=== PATIENT | female | born 1990 | race American Indian/Alaskan Native ===

== ENCOUNTER 2019-06-11 05:15 | Inpatient (IN) | payer MEDICAID ==
--- NOTE | 2019-06-11 05:58 | XRay Report ---
CHEST 1 VIEW 5:46 AM INDICATION / CLINICAL INFORMATION: Chest pain and difficulty breathing for 2 days. . COMPARISON: None available. FINDINGS: SUPPORT DEVICES: None. HEART / MEDIASTINUM: The heart size is borderline. There is mild prominence of the central pulmonary vessels. LUNGS / PLEURA: Interstitial lung markings are mildly increased in both mid to lower lung zones. Ther e are trace bilateral pleural effusions. No pneumothorax. ADDITIONAL FINDINGS: No significant additional findings. IMPRESSION: Mild pulmonary edema. Signer Name: Aron Martin MD Signed: 06/11/2019 5:54 AM Workstation Name: [id number]
[2019-06-11] MEDS ORDERED: NORMODYNE PO ONE (06:35)
[2019-06-11] MEDS ORDERED: NORMODYNE IV ONE ×2 (07:31→10:07)
[2019-06-11 07:33] LABS: Bilirubin,Urine NEG (Negative); Blood,Urine SM (Negative); Color,Urine Yellow (Yellow); Mucus,Urine FEW /HPF; Urobilinogen,Urine < 2.0 mg/dL (<2.0)
--- NOTE | 2019-06-11 07:39 | Emergency Department Report ---
ED Chest Pain HPI - General Chief Complaint: Chest Pain Stated Complaint: CHEST PAIN Time Seen by Provider: 06/11/19 07:24 Source: patient Mode of arrival: Ambulatory Limitations: No Limitations - History of Present Illness Initial Comments: Charline is a very pleasant 28 yo female. She is a new mother who presents with chest pain and shortness of breath. She delivered her baby boy vaginally at [facility] on May 03. She did not have any complications during the . She was followed by [facility] in addition to her primary paper conservator Dr. Bundy. Did not have preeclampsia. She even underwent 24 hour urine collection prior to delivery. She was induced at 39 weeks and 5 days. Had been doing well until Thursday 3 days ago. She has had central heavy chest pain with shortness of breath. Seen at urgent care this week but delayed evaluation to ER. During the night, she awakened with shortness of breath and severe chest heaviness. No abdominal pain. No headache. No leg swelling. No visual changes. MD Complaint: chest pain -: Gradual, days(s) (3) Onset: during rest Pain Location: substernal Severity: moderate, severe Severity scale (0 -10): 8 Quality: heaviness Consistency: constant Improves With: other (sitting up) Worsens With: exertion re: dyspnea - Related Data Allergies Allergy/AdvReac Type Severity Reaction Status Date / Time No Known Allergies Allergy Unverified 06/11/19 05:29 Heart Score - HEART Score History: Slightly suspicious EKG: Non-specific Age: < 45 Risk factors: 1-2 risk factors Troponin: < normal limit HEART Score: 2 ED Review of Systems ROS: Stated complaint: CHEST PAIN Other details as noted in HPI Comment: All other systems reviewed and negative Constitutional: denies: fever, malaise Eyes: denies: vision change Respiratory: shortness of breath. denies: cough Cardiovascular: chest pain Gastrointestinal: denies: abdominal pain, nausea Neurological: denies: headache ED Past Medical Hx - Past Medical History Previous Medical History?: No - Surgical History Past Surgical History?: No - Social History Smoking Status: Never Smoker Substance Use Type: None ED Physical Exam - General Limitations: No Limitations General appearance: alert, in no apparent distress - Head Head exam: Present: atraumatic, normocephalic - Eye Eye exam: Present: normal appearance - ENT ENT exam: Present: mucous membranes moist - Neck Neck exam: Present: normal inspection, full ROM - Respiratory Respiratory exam: Present: normal lung sounds bilaterally. Absent: respiratory distress, wheezes, rales, rhonchi - Cardiovascular Cardiovascular Exam: Present: regular rate, normal rhythm, normal heart sounds. Absent: systolic murmur, diastolic murmur, rubs, gallop - GI/Abdominal GI/Abdominal exam: Present: soft, normal bowel sounds. Absent: distended, tenderness, guarding, rebound - Extremities Exam Extremities exam: Present: normal inspection - Back Exam Back exam: Present: normal inspection - Neurological Exam Neurological exam: Present: alert, oriented X3 - Psychiatric Psychiatric exam: Present: normal affect, normal mood - Skin Skin exam: Present: warm, dry, intact, normal color. Absent: rash ED Course Vital Signs 06/11/19 06/11/19 06/11/19 05:26 07:37 08:00 Temperature 98.8 F Pulse Rate 120 H 116 H Respiratory 18 18 Rate Blood Pressure 160/115 154/113 Blood Pressure [Left] O2 Sat by Pulse 98 98 Oximetry 06/11/19 06/11/19 06/11/19 08:35 09:39 10:03 Temperature 98.3 F Pulse Rate 92 H 69 86 Respiratory 18 14 18 Rate Blood Pressure Blood Pressure 148/100 104/53 144/104 [Left] O2 Sat by Pulse 98 98 99 Oximetry 06/11/19 06/11/19 10:13 11:28 Temperature Pulse Rate 92 H 90 Respiratory 18 Rate Blood Pressure 144/104 Blood Pressure 156/131 [Left] O2 Sat by Pulse 98 Oximetry ED Medical Decision Making - Lab Data Result diagrams: 06/11/19 07:23 06/11/19 07:22 - EKG Data 06/11/19 07:37 EKG obtained 0531 Sinus Tachycardia rate 120 bpm nl axis nl intervals no ST elevation inverted T wave in leads I avl - Radiology Data Radiology results: report reviewed Chest x-ray: Vascular congestion and pulmonary edema CT angiogram chest: No pulmonary embolism, positive pulmonary edema with minimal pericardial effusion, pleural effusion on the right, abdominal ascites - Medical Decision Making Junita presents 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 Pulmonary edema with pleural effusion and pericardial effusion on CT angio with abdominal ascities Blood pressure addressed initially with IV labetalol. I have added afterload reduction with hydralazine. Also did initiate diuresis with IV furosemide. I highly appreciate the gracious consultation of multi purpose machine operator Dr. Ortiz. Admitted to hospitalist service. Critical Care Time: Yes Critical care time in (mins) excluding proc time.: 40 Critical care attestation.: If time is entered above; I have spent that time in minutes in the direct care of this critically ill patient, excluding procedure time. 40 minutes of critical care time excluding procedures were used in the care of the patient. Mrs. Basilio require multiple reassessments and interventions. I spoke with consultants involved in her care. I reviewed electronic record. I updated her family member at the bedside. I provided extensive education to patient. ED Disposition Clinical Impression: Cardiomyopathy, peripartum, , Acute CHF, Acute respiratory failure with hypoxia Disposition: DC-09 OP ADMIT IP TO THIS HOSP Is pt being admited?: Yes Does the pt Need Aspirin: No Condition: Stable
[2019-06-11 08:01] LABS: Basophils # (Auto) 0.1 K/mm3 (0.0-0.1); Basophils % (Auto) 0.8 % (0.0-1.8); Eosinophils # (Auto) 0.4 K/mm3 (0.0-0.4); Eosinophils % (Auto) 4.2 % (0.0-4.3); Hematocrit 38.6 % (30.3-42.9); Lymphocytes # (Auto) 2.6 K/mm3 (1.2-5.4); Lymphocytes % (Auto) 28.5 % (13.4-35.0); Mean Corpuscular HGB Conc 34 % (30-34); Mean Corpuscular Volume 93 fl (79-97); Monocytes # (Auto) 0.4 K/mm3 (0.0-0.8); Monocytes % (Auto) 4.6 % (0.0-7.3); Platelet Count 271 K/mm3 (140-440); Red Blood Count 4.16 M/mm3 (3.65-5.03); Red Cell Distribution Width 13.2 % (13.2-15.2)
[2019-06-11 08:11] LABS: INR 1.1 (0.87-1.13); Partial Thromboplastin Time 30.9 Sec. (24.2-36.6)
[2019-06-11 09:12] LABS: Alanine Aminotransferase 14 units/L (7-56); Albumin 3.8 g/dL (3.9-5); BUN/Creatinine Ratio 17; Blood Urea Nitrogen 15 mg/dL (7-17); Calcium 9.1 mg/dL (8.4-10.2); Hemolysis Index 9
[2019-06-11 09:19] LABS: Bilirubin,Direct < 0.2 mg/dL (0-0.2)
--- NOTE | 2019-06-11 11:07 | Cat Scan Report ---
CT angio chest INDICATION: chest pain dyspnea . TECHNIQUE: All CT scans at this location are performed using CT dose reduction for ALARA by means of automated e xposure control. Precontrast localizer images were obtained, followed by axial and 3-dimensional reconstruction images , performed at an independent workstation by the nuclear medicine pet ct technologist after IV bolus contrast injection. COMPARISON: None available. FINDINGS: Small pericardial effusion and right pleural effusion. Minimal ascites in the upper abdomen around th e spleen. No mediastinal, hilar or axillary adenopathy. Diffuse interstitial pulmonary disease, probably pulmonary edema. No evidence of pulmonary embolus. IMPRESSION: 1. Interstitial pulmonary edema, small right pleural effusion and minimal pericardial effusion, as we ll as slight ascites in the upper abdomen. Etiology is not known in this 28-year-old patient. 2. Negative for pulmonary embolus. Signer Name: Tomer Hanks MD Signed: 06/11/2019 11:03 AM Workstation Name: [id number]
[2019-06-11] MEDS ORDERED: APRESOLINE PO ONE (11:39)
[2019-06-11] MEDS ORDERED: LASIX IV ONE (11:56)
--- NOTE | 2019-06-11 15:46 | Consultation ---
History of Present Illness Consult date: 06/11/19 Requesting physician: LANNY BA Consult reason: chest pain History of present illness: Ms. Basilio is a 28 y/o female who presented to [facility] with chest pain and SOB. She delivered a baby on May 03, but has no other medical history. She reports that on Thursday, she began to experience chest pain and shortness of breath. She was evaluated at an urgent care and found to also be hypertensive, but she did not go the the ER as advised. That night, she awoke with severe chest heaviness and SOB. Her D-dimer was positive, but CTA negative for PE. An EKG revealed ST with no signs of acute ischemia and an initial troponin was negative. A chest x-ray found cardiomegaly and changes suggestive of congestive heart failure; additionally, her BNP was elevated. A subsequent dose of Lasix provided some relief. Past History Past Medical History: other (Childbirth, 05/03/2019) Medications and Allergies Allergies Allergy/AdvReac Type Severity Reaction Status Date / Time No Known Allergies Allergy Unverified 06/11/19 05:29 Review of Systems All systems: negative Cardiovascular: chest pain, shortness of breath Physical Examination Vital Signs Temp Pulse Resp BP Pulse Ox 98.8 F 120 H 18 160/115 98 06/11/19 05:26 06/11/19 05:26 06/11/19 05:26 06/11/19 05:26 06/11/19 05:26 General appearance: no acute distress HEENT: Positive: PERRL Neck: Positive: neck supple Cardiac: Positive: Regular Rhythm Lungs: Positive: Decreased Breath Sounds (bibasilar) Neuro: Positive: Grossly Intact Abdomen: Positive: Unremarkable Female genitourinary: deferred Skin: Positive: Clear Musculoskeletal: Normal Range of Motion Extremities: Present: normal Results 06/11/19 07:23 06/11/19 07:22 Cardiac Enzymes 06/11/19 Range/Units 07:22 AST 16 (5-40) units/L Coagulation 06/11/19 Range/Units 07:22 PT 13.9 (12.2-14.9) Sec. INR 1.10 (0.87-1.13) APTT 30.9 (24.2-36.6) Sec. CBC 06/11/19 Range/Units 07:23 WBC 9.1 (4.5-11.0) K/mm3 RBC 4.16 (3.65-5.03) M/mm3 Hgb 13.0 (10.1-14.3) gm/dl Hct 38.6 (30.3-42.9) % Plt Count 271 (140-440) K/mm3 Lymph # 2.6 (1.2-5.4) K/mm3 [place] # 0.4 (0.0-0.8) K/mm3 Eos # 0.4 (0.0-0.4) K/mm3 Baso # 0.1 (0.0-0.1) K/mm3 Comprehensive Metabolic Panel 06/11/19 Range/Units 07:22 Sodium 146 H (137-145) mmol/L Potassium 3.8 (3.6-5.0) mmol/L Chloride 109.1 H (98-107) mmol/L Carbon Dioxide 24 (22-30) mmol/L BUN 15 (7-17) mg/dL Creatinine 0.9 (0.7-1.2) mg/dL Glucose 107 H (65-100) mg/dL Calcium 9.1 (8.4-10.2) mg/dL Direct Bilirubin < 0.2 (0-0.2) mg/dL Indirect Bilirubin 0.0 mg/dL AST 16 (5-40) units/L ALT 14 (7-56) units/L Alkaline Phosphatase 81 (35-129) units/L Total Protein 7.3 (6.3-8.2) g/dL Albumin 3.8 L (3.9-5) g/dL - Imaging and Cardiology Echo: pending EKG: report reviewed (ST with no evidence of acute ischemic changes) Assessment and Plan Ms. Basilio is a 28 y/o female who is five weeks post- and presented to [facility] with CP and SOB. She has no other known medical history. Echocardiogram is pending, but presentation suggestive of peripartum cardiomyopathy. Continue IV diuresis. Further recommendations pending hospital course. The patient was evaluated by Dr. Ortiz, who performed assessment and developed plan of care. - Patient Problems (1) Acute CHF Current Visit: Yes Status: Suspected (2) Acute respiratory failure with hypoxia Current Visit: Yes Status: Acute (3) Cardiomyopathy, peripartum, Current Visit: Yes Status: Suspected (4) Chest pain Current Visit: Yes Status: Acute
[2019-06-11] MEDS ORDERED: DILAUDID IV PRN (18:33)
[2019-06-11] MEDS ORDERED: ZOFRAN IV PRN (18:33)
[2019-06-11] MEDS ORDERED: SODIUM CHLORIDE FLUSH SYRINGE 10 ML IV PRN (18:33)
[2019-06-11] MEDS ORDERED: K-DUR PO SCH (19:00)
--- NOTE | 2019-06-11 19:54 | History and Physical Report ---
History of Present Illness Date of examination: 06/11/19 Date of admission: 06/11/19 13:56 Chief complaint: Chest pain and shortness of breath for 3 days History of present illness: 28 yo female presents with chest pain and shortness of breath . She delivered her baby boy vaginally at [facility] [place] on May 03. She did not have any complications during the . She was followed by [facility] in addition to her primary band tier Dr. Bundy. Did not have preeclampsia. She even underwent 24 hour urine collection prior to delivery. She was induced at 39 weeks and 5 days. Had been doing well until Thursday 3 days ago. She has had central heavy chest pain with shortness of breath. Seen at urgent care this week but delayed evaluation to ER. During the night, she awakened with shortness of breath and severe chest heaviness. No abdominal pain. No headache. No leg swelling. No visual changes. Past Medical History None Surgical History Past Surgical History?: No Social History Smoking Status: Never Smoker Substance Use Type: None Family history Htn Review of Systems ROS: Stated complaint: CHEST PAIN and SOB on exertion Other details as noted in HPI Comment: All other systems reviewed and negative Constitutional: denies: fever, malaise Eyes: denies: vision change Respiratory: shortness of breath. denies: cough Cardiovascular: chest pain Gastrointestinal: denies: abdominal pain, nausea Neurological: denies: headache 14 point review of systems reviewed and otherwise negative Past History Past Medical History: other (Childbirth, 05/03/2019) Medications and Allergies Allergies Allergy/AdvReac Type Severity Reaction Status Date / Time No Known Allergies Allergy Unverified 06/11/19 05:29 Active Meds: Active Medications Acetaminophen (Tylenol) 650 mg PO Q4H PRN PRN Reason: Pain MILD(1-3)/Fever >100.5/BUTLER Furosemide (Lasix) 40 mg IV 0600 RAKESH Hydromorphone HCl (Dilaudid) 0.5 mg IV Q3H PRN PRN Reason: Pain , Severe (7-10) Ondansetron HCl (Zofran) 4 mg IV Q8H PRN PRN Reason: Nausea And Vomiting Oxycodone/Acetaminophen (Percocet 5/325) 1 tab PO Q6H PRN PRN Reason: Pain, Moderate (4-6) Potassium Chloride (K-Dur) 20 meq PO Q12H RAKESH Sodium Chloride (Sodium Chloride Flush Syringe 10 Ml) 10 ml IV BID RAKESH Sodium Chloride (Sodium Chloride Flush Syringe 10 Ml) 10 ml IV PRN PRN PRN Reason: LINE FLUSH Exam - Constitutional Vitals: Temp Pulse Resp BP Pulse Ox 98.0 F 101 H 20 142/105 99 06/11/19 15:57 06/11/19 15:57 06/11/19 18:28 06/11/19 15:57 06/11/19 18:28 General appearance: Present: mild distress, well-nourished - EENT Eyes: Present: PERRL ENT: hearing intact, clear oral mucosa - Neck Neck: Present: supple, normal ROM - Respiratory Respiratory effort: normal Respiratory: bilateral: CTA - Cardiovascular Heart rate: 118 Rhythm: regular Heart Sounds: Present: S1 & S2. Absent: rub, click - Extremities Extremities: no ischemia, pulses intact, pulses symmetrical, No edema Peripheral Pulses: within normal limits - Abdominal General gastrointestinal: Present: soft, non-tender, non-distended, normal bowel sounds Female genitourinary: Present: normal - Rectal Rectal Exam: deferred - Integumentary Integumentary: Present: clear, warm, dry - Musculoskeletal Musculoskeletal: gait normal, strength equal bilaterally - Psychiatric Psychiatric: appropriate mood/affect, intact judgment & insight - Neurologic Neurologic: CNII-XII intact, moves all extremities - Allied Health Allied health notes reviewed: nursing, case management Results - Labs CBC & Chem 7: 06/11/19 07:23 06/11/19 07:22 Labs: Laboratory Last Values WBC 9.1 K/mm3 (4.5-11.0) 06/11/19 07:23 RBC 4.16 M/mm3 (3.65-5.03) 06/11/19 07:23 Hgb 13.0 gm/dl (10.1-14.3) 06/11/19 07:23 Hct 38.6 % (30.3-42.9) 06/11/19 07:23 MCV 93 fl (79-97) 06/11/19 07:23 MCH 31 pg (28-32) 06/11/19 07:23 MCHC 34 % (30-34) 06/11/19 07:23 RDW 13.2 % (13.2-15.2) 06/11/19 07:23 Plt Count 271 K/mm3 (140-440) 06/11/19 07:23 Lymph % (Auto) 28.5 % (13.4-35.0) 06/11/19 07:23 [place] % (Auto) 4.6 % (0.0-7.3) 06/11/19 07:23 Eos % (Auto) 4.2 % (0.0-4.3) 06/11/19 07:23 Baso % (Auto) 0.8 % (0.0-1.8) 06/11/19 07:23 Lymph # 2.6 K/mm3 (1.2-5.4) 06/11/19 07:23 [place] # 0.4 K/mm3 (0.0-0.8) 06/11/19 07:23 Eos # 0.4 K/mm3 (0.0-0.4) 06/11/19 07:23 Baso # 0.1 K/mm3 (0.0-0.1) 06/11/19 07:23 Seg Neutrophils % 61.9 % (40.0-70.0) 06/11/19 07:23 Seg Neutrophils # 5.7 K/mm3 (1.8-7.7) 06/11/19 07:23 PT 13.9 Sec. (12.2-14.9) 06/11/19 07:22 INR 1.10 (0.87-1.13) 06/11/19 07:22 APTT 30.9 Sec. (24.2-36.6) 06/11/19 07:22 764.54 ng/mlDDU (0-234) H 06/11/19 07:22 Sodium 146 mmol/L (137-145) H 06/11/19 07:22 Potassium 3.8 mmol/L (3.6-5.0) 06/11/19 07:22 Chloride 109.1 mmol/L (98-107) H 06/11/19 07:22 Carbon Dioxide 24 mmol/L (22-30) 06/11/19 07:22 17 mmol/L 06/11/19 07:22 BUN 15 mg/dL (7-17) 06/11/19 07:22 0.9 mg/dL (0.7-1.2) 06/11/19 07:22 Estimated GFR > 60 ml/min 06/11/19 07:22 17 % 06/11/19 07:22 Glucose 107 mg/dL (65-100) H 06/11/19 07:22 Calcium 9.1 mg/dL (8.4-10.2) 06/11/19 07:22 0.20 mg/dL (0.1-1.2) 06/11/19 07:22 < 0.2 mg/dL (0-0.2) 06/11/19 07:22 0.0 mg/dL 06/11/19 07:22 AST 16 units/L (5-40) 06/11/19 07:22 ALT 14 units/L (7-56) 06/11/19 07:22 81 units/L (35-129) 06/11/19 07:22 < 0.010 ng/mL (0.00-0.029) 06/11/19 16:37 NT-Pro-B Natriuret Pep 6498 pg/mL (0-450) H 06/11/19 07:23 7.3 g/dL (6.3-8.2) 06/11/19 07:22 3.8 g/dL (3.9-5) L 06/11/19 07:22 1.1 % 06/11/19 07:22 Yellow (Yellow) 06/11/19 07:18 Clear (Clear) 06/11/19 07:18 5.0 (5.0-7.0) 06/11/19 07:18 Ur Specific [place] 1.023 (1.003-1.030) 06/11/19 07:18 30 mg/dl mg/dL (Negative) 06/11/19 07:18 Neg mg/dL (Negative) 06/11/19 07:18 Neg mg/dL (Negative) 06/11/19 07:18 Sm (Negative) 06/11/19 07:18 Neg (Negative) 06/11/19 07:18 Neg (Negative) 06/11/19 07:18 < 2.0 mg/dL (<2.0) 06/11/19 07:18 Ur Leukocyte Esterase Tr (Negative) 06/11/19 07:18 3.0 /HPF (0.0-6.0) 06/11/19 07:18 3.0 /HPF (0.0-6.0) 06/11/19 07:18 U Epithel Cells (Auto) 6.0 /HPF (0-13.0) 06/11/19 07:18 Few /HPF 06/11/19 07:18 Short CBC 06/11/19 Range/Units 07:23 WBC 9.1 (4.5-11.0) K/mm3 Hgb 13.0 (10.1-14.3) gm/dl Hct 38.6 (30.3-42.9) % Plt Count 271 (140-440) K/mm3 BMP 06/11/19 07:22 Sodium 146 H Potassium 3.8 Chloride 109.1 H Carbon Dioxide 24 BUN 15 Creatinine 0.9 Glucose 107 H Calcium 9.1 Cardiac Enzymes 06/11/19 06/11/19 Range/Units 07:22 16:37 Troponin T < 0.010 < 0.010 (0.00-0.029) ng/mL Liver Function 06/11/19 Range/Units 07:22 Total Bilirubin 0.20 (0.1-1.2) mg/dL Direct Bilirubin < 0.2 (0-0.2) mg/dL AST 16 (5-40) units/L ALT 14 (7-56) units/L Alkaline Phosphatase 81 (35-129) units/L Albumin 3.8 L (3.9-5) g/dL Urine 06/11/19 Range/Units 07:18 Urine Color Yellow (Yellow) Urine pH 5.0 (5.0-7.0) Ur Specific [place] 1.023 (1.003-1.030) Urine Protein 30 mg/dl (Negative) mg/dL Urine Glucose (UA) Neg (Negative) mg/dL - Imaging and Cardiology EKG: report reviewed (sinus tachycardia ,heart rate of 119/m nonspecific T wave abnormalities) Chest x-ray: report reviewed (IMPRESSION: Mild pulmonary edema. ) Assessment and Plan Advance Directives: Yes (full code) VTE prophylaxis?: Chemical Plan of care discussed with patient/family: Yes - Patient Problems (1) Acute respiratory failure with hypoxia Current Visit: Yes Status: Acute Plan to address problem: Patient is hypoxic secondary to pulmonary vascular congestion Improved with oxygen and Lasix (2) Chest pain Current Visit: Yes Status: Acute Qualifiers: Chest pain type: unspecified Qualified Code(s): R07.9 - Chest pain, unspecified Plan to address problem: Chest pain workup Serial troponins Lexiscan on Thursday morning Echocardiogram for ejection fraction (3) Cardiomyopathy, peripartum, Current Visit: Yes Status: Acute Plan to address problem: Patient is 5 weeks Did not have any preeclampsia or eclampsia We'll get echocardiogram Lasix 40 mg IV every 24 and potassium 20 mEq every 24 (4) Acute exacerbation of congestive heart failure Current Visit: Yes Status: Acute Qualifiers: Heart failure type: combined systolic and diastolic Qualified Code(s): I50.43 - Acute on chronic combined systolic (congestive) and diastolic (congestive) heart failure Plan to address problem: Secondary to possible cardiomyopathy of peripartum Check echocardiogram For ejection fraction and valve function IV Lasix 40 mg every 24 Beta blockers and low-dose Angiotensin receptor blockers in low-dose (5) Hypernatremia Current Visit: Yes Status: Acute Plan to address problem: Mild Should correct with Lasix (6) DVT prophylaxis Current Visit: Yes Status: Acute Plan to address problem: Lovenox 40 mg subcutaneous daily and GI prophylaxis
[2019-06-11] MEDS: COZAAR PO SCH (20:58)
[2019-06-11] MEDS: COREG PO SCH (21:00)
[2019-06-11] MEDS: K-DUR PO SCH (21:00)
[2019-06-11] MEDS: LOVENOX SUB-Q SCH (21:09)
[2019-06-11] MEDS: SODIUM CHLORIDE FLUSH SYRINGE 10 ML IV SCH (21:11)
[2019-06-12] MEDS ORDERED: LASIX IV SCH (06:00)
[2019-06-12] MEDS: LASIX IV SCH (06:01)
[2019-06-12 07:44] LABS: Basophils % (Auto) 0.5 % (0.0-1.8); Eosinophils # (Auto) 0.3 K/mm3 (0.0-0.4); Hemoglobin 14.3 gm/dl (10.1-14.3); Lymphocytes # (Auto) 2.8 K/mm3 (1.2-5.4); Lymphocytes % (Auto) 33.1 % (13.4-35.0); Mean Corpuscular HGB Conc 34 % (30-34); Mean Corpuscular Volume 92 fl (79-97); Monocytes # (Auto) 0.4 K/mm3 (0.0-0.8); Monocytes % (Auto) 4.2 % (0.0-7.3); Platelet Count 305 K/mm3 (140-440); Red Blood Count 4.58 M/mm3 (3.65-5.03); Red Cell Distribution Width 13.2 % (13.2-15.2)
[2019-06-12 08:15] LABS: Alanine Aminotransferase 17 units/L (7-56); Albumin 4.1 g/dL (3.9-5); BUN/Creatinine Ratio 12; Blood Urea Nitrogen 11 mg/dL (7-17); Calcium 9.3 mg/dL (8.4-10.2); Hemolysis Index 5
[2019-06-12] MEDS: K-DUR PO SCH (09:09)
[2019-06-12] MEDS: COZAAR PO SCH (09:09)
[2019-06-12] MEDS: COREG PO SCH ×2 (09:09→22:14)
[2019-06-12] MEDS: SODIUM CHLORIDE FLUSH SYRINGE 10 ML IV SCH ×2 (09:10→22:18)
[2019-06-12] MEDS ORDERED: NORMODYNE IV PRN (11:47)
--- NOTE | 2019-06-12 13:44 | Progress Note ---
Assessment and Plan An echocardiogram revealed an EF of 25 to 30 percent. We will initiate GDMT for HFrEF, but will hold ACEi/ARB if patient is nursing. Continue diuresis. We will also optimize her antihypertensive regimen. The patient has been seen in conjunction with Dr. Ortiz, who agrees with assessment and plan. - Patient Problems (1) Acute HFrEF (heart failure with reduced ejection fraction) Current Visit: Yes Status: Acute (2) Acute respiratory failure with hypoxia Current Visit: Yes Status: Acute (3) Cardiomyopathy, peripartum, Current Visit: Yes Status: Acute (4) Chest pain Current Visit: Yes Status: Acute Qualifiers: Chest pain type: unspecified Qualified Code(s): R07.9 - Chest pain, unspecified (5) Hypertension Current Visit: Yes Status: Acute Subjective Date of service: 06/12/19 Interval history: The patient is lying in bed in NAD. No complaints. Echo revealed EF of 25 to 30 percent with grade 2 diastolic dysfunction, mild TR and a small pericardial effusion. Objective Last Vital Signs Temp 98.1 F 06/12/19 12:00 Pulse 95 H 06/12/19 12:00 Resp 19 06/12/19 12:00 BP 145/108 06/12/19 12:00 Pulse Ox 98 06/12/19 10:00 - Physical Examination General: No Apparent Distress HEENT: Positive: PERRL Neck: Positive: neck supple Cardiac: Positive: Reg Rate and Rhythm Lungs: Positive: Normal Exam Neuro: Positive: Grossly Intact Abdomen: Positive: Unremarkable Skin: Positive: Clear Musculoskeletal: Normal Range of Motion Extremities: Present: normal - Labs and Meds Cardiac Enzymes 06/12/19 Range/Units 06:49 AST 16 (5-40) units/L CBC 06/12/19 Range/Units 06:49 WBC 8.5 (4.5-11.0) K/mm3 RBC 4.58 (3.65-5.03) M/mm3 Hgb 14.3 (10.1-14.3) gm/dl Hct 42.0 (30.3-42.9) % Plt Count 305 (140-440) K/mm3 Lymph # 2.8 (1.2-5.4) K/mm3 [place] # 0.4 (0.0-0.8) K/mm3 Eos # 0.3 (0.0-0.4) K/mm3 Baso # 0.0 (0.0-0.1) K/mm3 Comprehensive Metabolic Panel 06/12/19 Range/Units 06:49 Sodium 145 (137-145) mmol/L Potassium 3.8 (3.6-5.0) mmol/L Chloride 103.6 (98-107) mmol/L Carbon Dioxide 27 (22-30) mmol/L BUN 11 (7-17) mg/dL Creatinine 0.9 (0.7-1.2) mg/dL Glucose 102 H (65-100) mg/dL Calcium 9.3 (8.4-10.2) mg/dL AST 16 (5-40) units/L ALT 17 (7-56) units/L Alkaline Phosphatase 93 (35-129) units/L Total Protein 7.7 (6.3-8.2) g/dL Albumin 4.1 (3.9-5) g/dL - Imaging and Cardiology EKG: report reviewed (sinus tachycardia ,heart rate of 119/m nonspecific T wave abnormalities) Echo: pending, report reviewed (06/12/19: EF 25-30%, mild TR, grade 2 diastolic dysfunction, small pericardial effusion )
[2019-06-12] MEDS: IMDUR PO SCH (14:18)
[2019-06-12] MEDS: APRESOLINE PO SCH ×2 (14:18→22:18)
--- NOTE | 2019-06-12 16:44 | Progress Note ---
Assessment and Plan Assessment and plan: Patient is 28 yo woman without a history of chronic medical problems who delived a baby boy on May 03 who presented with SOB * 2D echocardiogram revealed an EF of 25 to 30 percent. Acute systolic heart failure -no sol/arb due to , -treat with lasix Acute respiratory failure with hypoxia -wean off O2 Cardiomyopathy, peripartum, -see above Chest pain -Cardiology is following Hypertension Current Visit: Yes Status: Acute History Interval history: Patient was seen and examined. Follow-up on current diagnosis CHF. No overnight events reported to me. Patient denies any chest pain, shortness breath, nausea/vomiting or severe headaches. Imaging, nursing note, chart, labs and old chart reviewed. Discussed with patient. Hospitalist Physical - Physical exam Narrative exam: Gen: WDWN, NAD, Awake, Alert, Orientated HEENT: NCAT, EOMI, PERRL, OP Clear Neck: supple, no adenopathy, no thyromegaly, + JVD CVS/Heart: RRR, normal S1S2, pulses present bilaterally Chest/Lungs: crackles at bases, Symmetrical chest expansion, good air entry bilaterally GI/Abdomen: soft, NTND, good bowel sounds, no guarding or rebound /Bladder: no suprapubic tenderness, no CVA or paraspinal tenderness Extermity/Skin: pre-tibial ble pitting edema +1 MSK: FROM x 4 Neuro: CN 2-12 grossly intact, no new focal deficits Psych: calm - Constitutional Vitals: Temp Pulse Resp BP Pulse Ox 98.0 F 109 H 18 143/99 100 06/12/19 16:19 06/12/19 16:19 06/12/19 16:19 06/12/19 16:19 06/12/19 16:19 General appearance: Present: well-nourished. Absent: mild distress Results - Labs CBC & Chem 7: 06/12/19 06:49 06/12/19 06:49 Labs: Laboratory Last Values WBC 8.5 K/mm3 (4.5-11.0) 06/12/19 06:49 RBC 4.58 M/mm3 (3.65-5.03) 06/12/19 06:49 Hgb 14.3 gm/dl (10.1-14.3) 06/12/19 06:49 Hct 42.0 % (30.3-42.9) 06/12/19 06:49 MCV 92 fl (79-97) 06/12/19 06:49 MCH 31 pg (28-32) 06/12/19 06:49 MCHC 34 % (30-34) 06/12/19 06:49 RDW 13.2 % (13.2-15.2) 06/12/19 06:49 Plt Count 305 K/mm3 (140-440) 06/12/19 06:49 Lymph % (Auto) 33.1 % (13.4-35.0) 06/12/19 06:49 [place] % (Auto) 4.2 % (0.0-7.3) 06/12/19 06:49 Eos % (Auto) 4.0 % (0.0-4.3) 06/12/19 06:49 Baso % (Auto) 0.5 % (0.0-1.8) 06/12/19 06:49 Lymph # 2.8 K/mm3 (1.2-5.4) 06/12/19 06:49 [place] # 0.4 K/mm3 (0.0-0.8) 06/12/19 06:49 Eos # 0.3 K/mm3 (0.0-0.4) 06/12/19 06:49 Baso # 0.0 K/mm3 (0.0-0.1) 06/12/19 06:49 Seg Neutrophils % 58.2 % (40.0-70.0) 06/12/19 06:49 Seg Neutrophils # 5.0 K/mm3 (1.8-7.7) 06/12/19 06:49 PT 13.9 Sec. (12.2-14.9) 06/11/19 07:22 INR 1.10 (0.87-1.13) 06/11/19 07:22 APTT 30.9 Sec. (24.2-36.6) 06/11/19 07:22 764.54 ng/mlDDU (0-234) H 06/11/19 07:22 Sodium 145 mmol/L (137-145) 06/12/19 06:49 Potassium 3.8 mmol/L (3.6-5.0) 06/12/19 06:49 Chloride 103.6 mmol/L (98-107) 06/12/19 06:49 Carbon Dioxide 27 mmol/L (22-30) 06/12/19 06:49 18 mmol/L 06/12/19 06:49 BUN 11 mg/dL (7-17) 06/12/19 06:49 0.9 mg/dL (0.7-1.2) 06/12/19 06:49 Estimated GFR > 60 ml/min 06/12/19 06:49 12 % 06/12/19 06:49 Glucose 102 mg/dL (65-100) H 06/12/19 06:49 5.6 % (4-6) 06/11/19 20:20 Calcium 9.3 mg/dL (8.4-10.2) 06/12/19 06:49 0.50 mg/dL (0.1-1.2) 06/12/19 06:49 < 0.2 mg/dL (0-0.2) 06/11/19 07:22 0.0 mg/dL 06/11/19 07:22 AST 16 units/L (5-40) 06/12/19 06:49 ALT 17 units/L (7-56) 06/12/19 06:49 93 units/L (35-129) 06/12/19 06:49 < 0.010 ng/mL (0.00-0.029) 06/11/19 16:37 NT-Pro-B Natriuret Pep 6498 pg/mL (0-450) H 06/11/19 07:23 7.7 g/dL (6.3-8.2) 06/12/19 06:49 4.1 g/dL (3.9-5) 06/12/19 06:49 1.1 % 06/12/19 06:49 Yellow (Yellow) 06/11/19 07:18 Clear (Clear) 06/11/19 07:18 5.0 (5.0-7.0) 06/11/19 07:18 Ur Specific [place] 1.023 (1.003-1.030) 06/11/19 07:18 30 mg/dl mg/dL (Negative) 06/11/19 07:18 Neg mg/dL (Negative) 06/11/19 07:18 Neg mg/dL (Negative) 06/11/19 07:18 Sm (Negative) 06/11/19 07:18 Neg (Negative) 06/11/19 07:18 Neg (Negative) 06/11/19 07:18 < 2.0 mg/dL (<2.0) 06/11/19 07:18 Ur Leukocyte Esterase Tr (Negative) 06/11/19 07:18 3.0 /HPF (0.0-6.0) 06/11/19 07:18 3.0 /HPF (0.0-6.0) 06/11/19 07:18 U Epithel Cells (Auto) 6.0 /HPF (0-13.0) 06/11/19 07:18 Few /HPF 06/11/19 07:18 Active Medications - Current Medications Current Medications: Generic Name Dose Route Start Last Admin Trade Name Freq PRN Reason Stop Dose Admin Acetaminophen 650 mg 06/11/19 18:33 Tylenol PO Q4H PRN Pain MILD(1-3)/Fever >100.5/BUTLER Carvedilol 3.125 mg 06/12/19 22:00 Coreg PO BID RAKESH Enoxaparin Sodium 40 mg 06/11/19 22:00 06/11/19 21:09 Lovenox SUB-Q 40 mg QDAY@2200 RAKESH Administration Furosemide 40 mg 06/12/19 06:00 06/12/19 06:01 Lasix IV 40 mg 0600 RAKESH Administration Hydralazine HCl 25 mg 06/12/19 14:00 06/12/19 14:18 Apresoline PO 25 mg Q8HR RAKESH Administration Hydromorphone HCl 0.5 mg 06/11/19 18:33 Dilaudid IV Q3H PRN Pain , Severe (7-10) Isosorbide Mononitrate 30 mg 06/12/19 14:00 06/12/19 14:18 Imdur PO 30 mg QDAY RAKESH Administration Labetalol HCl 10 mg 06/12/19 11:47 Normodyne IV Q4H PRN Blood Pressure Losartan Potassium 50 mg 06/11/19 21:00 06/12/19 09:09 Cozaar PO 50 mg QDAY RAKESH Administration Ondansetron HCl 4 mg 06/11/19 18:33 Zofran IV Q8H PRN Nausea And Vomiting Oxycodone/Acetaminophen 1 tab 06/11/19 18:33 Percocet 5/325 PO Q6H PRN Pain, Moderate (4-6) Potassium Chloride 20 meq 06/11/19 21:00 06/12/19 09:09 K-Dur PO 20 meq Q24HR RAKESH Administration Sodium Chloride 10 ml 06/11/19 22:00 06/12/19 09:10 Sodium Chloride Flush Syringe 10 Ml IV 10 ml BID RAKESH Administration Sodium Chloride 10 ml 06/11/19 18:33 Sodium Chloride Flush Syringe 10 Ml IV PRN PRN LINE FLUSH
[2019-06-12] MEDS: LOVENOX SUB-Q SCH (22:14)
[2019-06-12] MEDS: TYLENOL PO PRN (23:37)
[2019-06-13] MEDS: APRESOLINE PO SCH ×3 (05:53→22:39)
[2019-06-13] MEDS: LASIX IV SCH (05:53)
[2019-06-13] MEDS: COZAAR PO SCH (10:03)
[2019-06-13] MEDS: IMDUR PO SCH (10:03)
[2019-06-13] MEDS: K-DUR PO SCH (10:03)
[2019-06-13] MEDS: COREG PO SCH ×3 (10:03→22:40)
[2019-06-13] MEDS: SODIUM CHLORIDE FLUSH SYRINGE 10 ML IV SCH ×2 (10:05→22:40)
--- NOTE | 2019-06-13 11:40 | Progress Note ---
Assessment and Plan (1) Acute HFrEF (heart failure with reduced ejection fraction) Current Visit: Yes Status: Acute (2) Acute respiratory failure with hypoxia Current Visit: Yes Status: Acute (3) Cardiomyopathy, peripartum, Current Visit: Yes Status: Acute (4) Chest pain Current Visit: Yes Status: Acute Qualifiers: Chest pain type: unspecified Qualified Code(s): R07.9 - Chest pain, unspecified (5) Hypertension Current Visit: Yes Status: Acute Increase carvedilol to 12.5 mg twice a day from 3.125. To avoid Lorenzo inhibitors and ARBs because of nursing. Subjective Date of service: 06/13/19 Interval history: Patient is feeling better. She is nursing the baby. Blood pressure is still elevated. Patient wants to go home. Objective Vital Signs Temp Pulse Pulse Pulse Pulse Resp BP 06/13/19 11:21 97.7 F 101 H 16 135/97 06/13/19 10:03 94 H 147/111 06/13/19 08:15 98.3 F 104 H 18 146/103 06/13/19 05:53 96 H 141/100 06/13/19 04:25 98.7 F 96 H 20 141/100 06/13/19 04:00 98 H 06/12/19 22:18 98 H 149/109 06/12/19 22:14 98 H 149/109 06/12/19 21:14 105 H 105 H 105 H 18 06/12/19 20:00 98 H 06/12/19 19:19 98.3 F 105 H 18 151/109 06/12/19 16:19 98.0 F 109 H 18 06/12/19 16:04 112 H 143/99 06/12/19 14:18 90 140/108 06/12/19 14:16 89 140/108 06/12/19 12:00 98.1 F 103 H 19 BP Pulse Ox 06/13/19 11:21 95 06/13/19 10:03 06/13/19 08:15 96 06/13/19 05:53 06/13/19 04:25 92 06/13/19 04:00 06/12/19 22:18 06/12/19 22:14 06/12/19 21:14 98 06/12/19 20:00 06/12/19 19:19 96 06/12/19 16:19 143/99 100 06/12/19 16:04 96 06/12/19 14:18 06/12/19 14:16 98 06/12/19 12:00 145/108 - Physical Examination General: No Apparent Distress HEENT: Positive: PERRL Neck: Positive: neck supple Cardiac: Positive: S3 Neuro: Positive: Grossly Intact Abdomen: Positive: Unremarkable Skin: Positive: Clear Musculoskeletal: Normal Range of Motion Extremities: Present: normal - Imaging and Cardiology EKG: report reviewed (sinus tachycardia ,heart rate of 119/m nonspecific T wave abnormalities) Echo: pending, report reviewed (06/12/19: EF 25-30%, mild TR, grade 2 diastolic dysfunction, small pericardial effusion )
[2019-06-13] MEDS: PERCOCET 5/325 PO PRN (12:07)
--- NOTE | 2019-06-13 15:05 | Progress Note ---
Assessment and Plan Assessment and plan: Patient is 28 yo woman without a history of chronic medical problems who delived a baby boy on May 03 who presented with SOB * 2D echocardiogram revealed an estimated EF of 25 to 30 percent. Acute systolic heart failure -no sol/arb due to , -treat with lasix -increase Coreg -stress test canceled by Executive Vice President And Chief Operating Officer Acute respiratory failure with hypoxia -wean off O2 Cardiomyopathy, peripartum, -see above Chest pain -Cardiology is following Hypertension Current Visit: Yes Status: Acute Disposition: continue inpatient care for CHF, d/c once cleared by Executive Vice President And Chief Operating Officer. History Interval history: Patient was seen and examined. Follow-up on current diagnosis CHF. No overnight events reported to me. Patient denies any chest pain, shortness breath, nausea/vomiting or severe headaches. Imaging, nursing note, chart, labs and old chart reviewed. Discussed with patient. Hospitalist Physical - Physical exam Narrative exam: Gen: WDWN, NAD, Awake, Alert, Orientated HEENT: NCAT, EOMI, PERRL, OP Clear Neck: supple, no adenopathy, no thyromegaly, + JVD CVS/Heart: RRR, normal S1S2, pulses present bilaterally Chest/Lungs: crackles at bases, Symmetrical chest expansion, good air entry bilaterally GI/Abdomen: soft, NTND, good bowel sounds, no guarding or rebound /Bladder: no suprapubic tenderness, no CVA or paraspinal tenderness Extermity/Skin: pre-tibial ble pitting edema +1 MSK: FROM x 4 Neuro: CN 2-12 grossly intact, no new focal deficits Psych: calm - Constitutional Vitals: Temp Pulse Resp BP Pulse Ox 97.7 F 77 16 130/95 95 06/13/19 11:21 06/13/19 15:01 06/13/19 11:21 06/13/19 15:01 06/13/19 11:21 General appearance: Present: well-nourished. Absent: mild distress Results - Labs CBC & Chem 7: 06/12/19 06:49 06/12/19 06:49 Labs: Laboratory Last Values WBC 8.5 K/mm3 (4.5-11.0) 06/12/19 06:49 RBC 4.58 M/mm3 (3.65-5.03) 06/12/19 06:49 Hgb 14.3 gm/dl (10.1-14.3) 06/12/19 06:49 Hct 42.0 % (30.3-42.9) 06/12/19 06:49 MCV 92 fl (79-97) 06/12/19 06:49 MCH 31 pg (28-32) 06/12/19 06:49 MCHC 34 % (30-34) 06/12/19 06:49 RDW 13.2 % (13.2-15.2) 06/12/19 06:49 Plt Count 305 K/mm3 (140-440) 06/12/19 06:49 Lymph % (Auto) 33.1 % (13.4-35.0) 06/12/19 06:49 [place] % (Auto) 4.2 % (0.0-7.3) 06/12/19 06:49 Eos % (Auto) 4.0 % (0.0-4.3) 06/12/19 06:49 Baso % (Auto) 0.5 % (0.0-1.8) 06/12/19 06:49 Lymph # 2.8 K/mm3 (1.2-5.4) 06/12/19 06:49 [place] # 0.4 K/mm3 (0.0-0.8) 06/12/19 06:49 Eos # 0.3 K/mm3 (0.0-0.4) 06/12/19 06:49 Baso # 0.0 K/mm3 (0.0-0.1) 06/12/19 06:49 Seg Neutrophils % 58.2 % (40.0-70.0) 06/12/19 06:49 Seg Neutrophils # 5.0 K/mm3 (1.8-7.7) 06/12/19 06:49 PT 13.9 Sec. (12.2-14.9) 06/11/19 07:22 INR 1.10 (0.87-1.13) 06/11/19 07:22 APTT 30.9 Sec. (24.2-36.6) 06/11/19 07:22 764.54 ng/mlDDU (0-234) H 06/11/19 07:22 Sodium 145 mmol/L (137-145) 06/12/19 06:49 Potassium 3.8 mmol/L (3.6-5.0) 06/12/19 06:49 Chloride 103.6 mmol/L (98-107) 06/12/19 06:49 Carbon Dioxide 27 mmol/L (22-30) 06/12/19 06:49 18 mmol/L 06/12/19 06:49 BUN 11 mg/dL (7-17) 06/12/19 06:49 0.9 mg/dL (0.7-1.2) 06/12/19 06:49 Estimated GFR > 60 ml/min 06/12/19 06:49 12 % 06/12/19 06:49 Glucose 102 mg/dL (65-100) H 06/12/19 06:49 5.6 % (4-6) 06/11/19 20:20 Calcium 9.3 mg/dL (8.4-10.2) 06/12/19 06:49 0.50 mg/dL (0.1-1.2) 06/12/19 06:49 < 0.2 mg/dL (0-0.2) 06/11/19 07:22 0.0 mg/dL 06/11/19 07:22 AST 16 units/L (5-40) 06/12/19 06:49 ALT 17 units/L (7-56) 06/12/19 06:49 93 units/L (35-129) 06/12/19 06:49 < 0.010 ng/mL (0.00-0.029) 06/11/19 16:37 NT-Pro-B Natriuret Pep 6498 pg/mL (0-450) H 06/11/19 07:23 7.7 g/dL (6.3-8.2) 06/12/19 06:49 4.1 g/dL (3.9-5) 06/12/19 06:49 1.1 % 06/12/19 06:49 Yellow (Yellow) 06/11/19 07:18 Clear (Clear) 06/11/19 07:18 5.0 (5.0-7.0) 06/11/19 07:18 Ur Specific [place] 1.023 (1.003-1.030) 06/11/19 07:18 30 mg/dl mg/dL (Negative) 06/11/19 07:18 Neg mg/dL (Negative) 06/11/19 07:18 Neg mg/dL (Negative) 06/11/19 07:18 Sm (Negative) 06/11/19 07:18 Neg (Negative) 06/11/19 07:18 Neg (Negative) 06/11/19 07:18 < 2.0 mg/dL (<2.0) 06/11/19 07:18 Ur Leukocyte Esterase Tr (Negative) 06/11/19 07:18 3.0 /HPF (0.0-6.0) 06/11/19 07:18 3.0 /HPF (0.0-6.0) 06/11/19 07:18 U Epithel Cells (Auto) 6.0 /HPF (0-13.0) 06/11/19 07:18 Few /HPF 06/11/19 07:18 Active Medications - Current Medications Current Medications: Generic Name Dose Route Start Last Admin Trade Name Freq PRN Reason Stop Dose Admin Acetaminophen 650 mg 06/11/19 18:33 06/12/19 23:37 Tylenol PO 650 mg Q4H PRN Administration Pain MILD(1-3)/Fever >100.5/BUTLER Carvedilol 12.5 mg 06/13/19 12:00 06/13/19 12:08 Coreg PO 12.5 mg BID RAKESH Administration Enoxaparin Sodium 40 mg 06/11/19 22:00 06/12/19 22:14 Lovenox SUB-Q 40 mg QDAY@2200 RAKESH Administration Furosemide 40 mg 06/12/19 06:00 06/13/19 05:53 Lasix IV 40 mg 0600 RAKESH Administration Hydralazine HCl 25 mg 06/12/19 14:00 06/13/19 15:01 Apresoline PO 25 mg Q8HR RAKESH Administration Hydromorphone HCl 0.5 mg 06/11/19 18:33 Dilaudid IV Q3H PRN Pain , Severe (7-10) Isosorbide Mononitrate 30 mg 06/12/19 14:00 06/13/19 10:03 Imdur PO 30 mg QDAY RAKESH Administration Labetalol HCl 10 mg 06/12/19 11:47 Normodyne IV Q4H PRN Blood Pressure Ondansetron HCl 4 mg 06/11/19 18:33 Zofran IV Q8H PRN Nausea And Vomiting Oxycodone/Acetaminophen 1 tab 06/11/19 18:33 06/13/19 12:07 Percocet 5/325 PO 1 tab Q6H PRN Administration Pain, Moderate (4-6) Potassium Chloride 20 meq 06/11/19 21:00 06/13/19 10:03 K-Dur PO 20 meq Q24HR RAKESH Administration Sodium Chloride 10 ml 06/11/19 22:00 06/13/19 10:05 Sodium Chloride Flush Syringe 10 Ml IV 10 ml BID RAKESH Administration Sodium Chloride 10 ml 06/11/19 18:33 Sodium Chloride Flush Syringe 10 Ml IV PRN PRN LINE FLUSH
[2019-06-13] MEDS: TYLENOL PO PRN (17:16)
[2019-06-13] MEDS: LOVENOX SUB-Q SCH (22:40)
[2019-06-14] MEDS: PERCOCET 5/325 PO PRN (01:05)
[2019-06-14] MEDS: APRESOLINE PO SCH (06:34)
[2019-06-14] MEDS: LASIX IV SCH (06:34)
[2019-06-14] MEDS: K-DUR PO SCH (09:23)
[2019-06-14] MEDS: IMDUR PO SCH (09:23)
[2019-06-14] MEDS: TYLENOL PO PRN (09:34)
[2019-06-14] MEDS: COREG PO SCH (09:34)
[2019-06-14 09:35] VITALS: BP 130/93
[2019-06-14] MEDS: SODIUM CHLORIDE FLUSH SYRINGE 10 ML IV SCH (10:22)
--- NOTE | 2019-06-14 10:30 | Discharge Summary ---
Providers - Providers Date of Admission: 06/11/19 13:56 Attending physician: MEGAN VELASQUEZ MD 06/11/19 18:33 Consult to Physician [CONS] Routine Comment: Consulting Provider: JADE HINTON Physician Instructions: Reason For Exam: CHF Primary care physician: [facility], Hospitalization Reason for admission: cardiomyopathy Condition: Stable Hospital course: Patient is 28 yo woman without a history of chronic medical problems who delived a baby boy on May 03 who presented with SOB * 2D echocardiogram revealed an estimated EF of 25 to 30 percent. * Per discussion with cardiology, no isosorbid or hydralazin and no lasix of k. Patient will be seen in the office and re-evaluated * Increase carvedilol to 12.5 mg twice a day from 3.125. To avoid Lorenzo inhibitors and ARBs because of nursing. Acute systolic heart failure Acute respiratory failure with hypoxia Cardiomyopathy, peripartum, Chest pain atypical secondary Hypertension Disposition: TO HOME OR SELFCARE Time spent for discharge: 35 mins Core Measure Documentation - Palliative Care Palliative Care/ Comfort Measures: Not Applicable - Core Measures Any of the following diagnoses?: heart failure - Heart Failure Discharge Requirements LORENZO/ARB for LVSD if EF <40%: No Reason for no LORENZO/ARB: Medical contraindication Beta andressa at discharge: Yes Exam - Physical Exam Narrative exam: Gen: WDWN, NAD, Awake, Alert, Orientated HEENT: NCAT, EOMI, PERRL, OP Clear Neck: supple, no adenopathy, no thyromegaly, + JVD CVS/Heart: RRR, normal S1S2, pulses present bilaterally Chest/Lungs: crackles at bases, Symmetrical chest expansion, good air entry bilaterally GI/Abdomen: soft, NTND, good bowel sounds, no guarding or rebound /Bladder: no suprapubic tenderness, no CVA or paraspinal tenderness Extermity/Skin: pre-tibial ble pitting edema +1 MSK: FROM x 4 Neuro: CN 2-12 grossly intact, no new focal deficits Psych: calm - Constitutional Vitals: Temp Pulse Resp BP Pulse Ox 98.2 F 92 H 18 130/93 97 06/14/19 08:51 06/14/19 09:34 06/14/19 08:51 06/14/19 09:34 06/14/19 08:51 Plan Activity: advance as tolerated, fall precautions Diet: low fat Special Instructions: record daily BP diary Additional Instructions: ALSO FOLLOW WITH COMMUNICATIONS LEAD Follow up with: JADE HINTON MD [Staff Physician] - 7 Days (Follow up in our [place] office with Dr. Hinton on 06/15/2019 @ 1:30PM.) [place] [facility] [Primary Care Provider] - 3-5 Days Prescriptions: Carvedilol [Coreg] 12.5 mg PO BID #60 tablet
--- NOTE | 2019-06-14 12:30 | Progress Note ---
Assessment and Plan Currently stable cardiac status. BPs improved today. Cont coreg 12.5mg BID. Avoid Lorenzo inhibitors and ARBs because of nursing. Pt may discharge home from cardiology standpoint. Follow up in our [place] office with Dr. Ortiz on 06/15/2019 @ 1:30PM. The patient has been seen in conjunction with Dr. Cadet who agrees with the assessment and plan of care. - Patient Problems (1) Acute HFrEF (heart failure with reduced ejection fraction) Current Visit: Yes Status: Acute (2) Cardiomyopathy, peripartum, Current Visit: Yes Status: Acute (3) Acute respiratory failure with hypoxia Current Visit: Yes Status: Resolved (4) Chest pain Current Visit: Yes Status: Resolved Qualifiers: Chest pain type: unspecified Qualified Code(s): R07.9 - Chest pain, unspecified (5) Hypertension Current Visit: Yes Status: Chronic Subjective Date of service: 06/14/19 Principal diagnosis: HF Interval history: pt resting in bed, states she is feeling well. in SR on tele. Objective Last Vital Signs Temp 98.2 F 06/14/19 08:51 Pulse 89 06/14/19 12:11 Resp 18 06/14/19 10:00 BP 130/93 06/14/19 09:34 Pulse Ox 98 06/14/19 10:00 - Physical Examination General: No Apparent Distress HEENT: Positive: PERRL Neck: Positive: neck supple Cardiac: Positive: Reg Rate and Rhythm, S1/S2 Lungs: Positive: clear to auscultation Neuro: Positive: Grossly Intact Abdomen: Positive: Unremarkable Skin: Positive: Clear Musculoskeletal: Normal Range of Motion Extremities: Present: normal - Imaging and Cardiology EKG: report reviewed (sinus tachycardia ,heart rate of 119/m nonspecific T wave abnormalities) Echo: pending, report reviewed (06/12/19: EF 25-30%, mild TR, grade 2 diastolic dysfunction, small pericardial effusion )
== END 2019-06-14 12:55 | disposition home or self-care (01) | DRG 776 ==
LOC: ED 05:15 → 4A 13:56
PROVIDERS: ADMIT Internal Medicine; ATTEND Internal Medicine
DX: O99.53 Diseases of the respiratory system complicating the puerperium (principal); I11.0 Hypertensive heart disease with heart failure; J96.01 Acute respiratory failure with hypoxia; E87.0 Hyperosmolality and hypernatremia; Z82.49 Family history of ischemic heart disease and other diseases of the circulatory system; I50.43 Acute on chronic combined systolic (congestive) and diastolic (congestive) heart failure; O99.43 Diseases of the circulatory system complicating the puerperium; O10.13 Pre-existing hypertensive heart disease complicating the puerperium
CPT/HCPCS: 36415; 71045; 71275; 80053; 80076; 81001; 83036; 83880; 84484; 85025; 85379; 85610; 85730; 93005; 93010; 93306; G0378; J1650; J1940; Q9967

== ENCOUNTER 2019-06-27 21:16 | Emergency (ER) | payer SELFPAY ==
[2019-06-27 21:45] VITALS: BP 138/104
--- NOTE | 2019-06-27 21:47 | Event Note ---
ED Screening Note Date of service: 06/27/19 Time: 21:45 ED Screening Note: 28 yo presents 7 weeks post presents with chest pain and sob that worsened yesterday after vomitting episode This initial assessment/diagnostic orders/clinical plan/treatment(s) is/are subject to change based on patients health status, clinical progression and re- assessment by fellow clinical providers in the ED. Further treatment and workup at subsequent clinical providers discretion. Patient/guardian urged not to elope from the ED as their condition may be serious if not clinically assessed and managed. Initial orders include: ua, upt, cbc,cmp, d-dimer, pro bnp
[2019-06-27] MEDS ORDERED: KIONEX ONE (22:26)
== END 2019-06-28 01:20 | disposition left against medical advice (07) ==
LOC: ED 21:16
DX: R07.89 Other chest pain (principal); Z53.21 Procedure and treatment not carried out due to patient leaving prior to being seen by health care provider
CPT/HCPCS: 93005; 93010; J0153

== ENCOUNTER 2019-12-24 11:35 | Inpatient (IN) | payer SELFPAY ==
[2019-12-24] MEDS ORDERED: SODIUM CHLORIDE 0.9% 500 ML 500 ML IV ONE (12:01)
[2019-12-24] MEDS ORDERED: ONDANSETRON 4 MG/2 ML INJ IV ONE (12:01)
[2019-12-24] MEDS ORDERED: PANTOPRAZOLE 40 MG INJ IV ONE (12:01)
[2019-12-24] MEDS ORDERED: MORPHINE 4 MG/1 ML INJ IV ONE (12:02)
--- NOTE | 2019-12-24 12:09 | Emergency Department Report ---
<BADEMAR - Last Filed: 12/24/19 17:28> ED Abdominal Pain HPI - General Chief Complaint: Chest Pain Stated Complaint: CHEST PAIN Time Seen by Provider: 12/24/19 11:50 - Related Data Previous Rx's Medication Instructions Recorded Last Taken Type carvediloL [Coreg] 12.5 mg PO BID #60 tablet 06/14/19 Unknown Rx Allergies Allergy/AdvReac Type Severity Reaction Status Date / Time No Known Allergies Allergy Verified 12/24/19 11:47 ED Past Medical Hx - Medications Home Medications: Home Medications Medication Instructions Recorded Confirmed Last Taken Type carvediloL [Coreg] 12.5 mg PO BID #60 tablet 06/14/19 12/24/19 Unknown Rx ED Course - Reevaluation(s) Reevaluation #1: 12/24/19 17:27 Patient was signed out to me for evaluation of the patient CT. Patient's CT shows that there is some thickening of the wall of the gallbladder however pericholecystic fluid is unable to be appreciated on the CT. Patient still has some tenderness in the epigastric region and ultrasound will be performed. Aft er ultrasound and determination whether the patient should undergo admission or be discharged home with follow-up with surgery will be made. ED Medical Decision Making - Lab Data Result diagrams: 12/24/19 12:53 12/24/19 13:15 Lab Results 12/24/19 12/24/19 12/24/19 Range/Units 12:53 12:53 13:15 WBC 7.5 (4.5-11.0) K/mm3 RBC 4.30 (3.65-5.03) M/mm3 Hgb 13.5 (10.1-14.3) gm/dl Hct 39.0 (30.3-42.9) % MCV 91 (79-97) fl MCH 32 (28-32) pg MCHC 35 H (30-34) % RDW 14.1 (13.2-15.2) % Plt Count 279 (140-440) K/mm3 Lymph % (Auto) 21.5 (13.4-35.0) % [place] % (Auto) 3.6 (0.0-7.3) % Eos % (Auto) 1.1 (0.0-4.3) % Baso % (Auto) 0.5 (0.0-1.8) % Lymph # 1.6 (1.2-5.4) K/mm3 [place] # 0.3 (0.0-0.8) K/mm3 Eos # 0.1 (0.0-0.4) K/mm3 Baso # 0.0 (0.0-0.1) K/mm3 Seg Neutrophils % 73.3 H (40.0-70.0) % Seg Neutrophils # 5.5 (1.8-7.7) K/mm3 Sodium 141 (137-145) mmol/L Potassium 3.2 L (3.6-5.0) mmol/L Chloride 102.5 (98-107) mmol/L Carbon Dioxide 24 (22-30) mmol/L Anion Gap 18 mmol/L BUN 13 (7-17) mg/dL Creatinine 0.6 L (0.7-1.2) mg/dL Estimated GFR > 60 ml/min BUN/Creatinine Ratio 22 % Glucose 113 H (65-100) mg/dL Calcium 9.0 (8.4-10.2) mg/dL Total Bilirubin 2.50 H (0.1-1.2) mg/dL Direct Bilirubin 1.8 H (0-0.2) mg/dL Indirect Bilirubin 0.7 mg/dL AST 213 H (5-40) units/L ALT 154 H (7-56) units/L Alkaline Phosphatase 89 (35-129) units/L Troponin T < 0.010 (0.00-0.029) ng/mL NT-Pro-B Natriuret Pep 857.8 H (0-450) pg/mL Total Protein 7.7 (6.3-8.2) g/dL Albumin 4.1 (3.9-5) g/dL Albumin/Globulin Ratio 1.1 % Lipase 22 (13-60) units/L HCG, Qual (Negative) 12/24/19 Range/Units 13:15 WBC (4.5-11.0) K/mm3 RBC (3.65-5.03) M/mm3 Hgb (10.1-14.3) gm/dl Hct (30.3-42.9) % MCV (79-97) fl MCH (28-32) pg MCHC (30-34) % RDW (13.2-15.2) % Plt Count (140-440) K/mm3 Lymph % (Auto) (13.4-35.0) % [place] % (Auto) (0.0-7.3) % Eos % (Auto) (0.0-4.3) % Baso % (Auto) (0.0-1.8) % Lymph # (1.2-5.4) K/mm3 [place] # (0.0-0.8) K/mm3 Eos # (0.0-0.4) K/mm3 Baso # (0.0-0.1) K/mm3 Seg Neutrophils % (40.0-70.0) % Seg Neutrophils # (1.8-7.7) K/mm3 Sodium (137-145) mmol/L Potassium (3.6-5.0) mmol/L Chloride (98-107) mmol/L Carbon Dioxide (22-30) mmol/L Anion Gap mmol/L BUN (7-17) mg/dL Creatinine (0.7-1.2) mg/dL Estimated GFR ml/min BUN/Creatinine Ratio % Glucose (65-100) mg/dL Calcium (8.4-10.2) mg/dL Total Bilirubin (0.1-1.2) mg/dL Direct Bilirubin (0-0.2) mg/dL Indirect Bilirubin mg/dL AST (5-40) units/L ALT (7-56) units/L Alkaline Phosphatase (35-129) units/L Troponin T (0.00-0.029) ng/mL NT-Pro-B Natriuret Pep (0-450) pg/mL Total Protein (6.3-8.2) g/dL Albumin (3.9-5) g/dL Albumin/Globulin Ratio % Lipase (13-60) units/L HCG, Qual Negative (Negative) - Radiology Data CT ABDOMEN AND PELVIS WITH IV CONTRAST INDICATION: Generalized abdominal pain for 2 days TECHNIQUE: Following the administration of intravenous contrast, multiple axial CT images of the abdomen and pelvis were acquired. Sagittal and coronal reformats were obtained. All CT performed at this facility utilize dose reduction techniques including automated exposure control, iterative reconstruction and weight based dosing when appropriate to reduce patient radiation dose to as low as reasonably achievable. COMPARISON: None FINDINGS: Limited imaging of the bilateral lung bases trace acute abnormality. Abdomen: There is possible subtle wall thickening of the gallbladder. The liver, spleen, pancreas, bilateral adrenal glands and bilateral kidneys show no evidence of acute abnormality. There is no evidence of free fluid, free air or bowel obstruction. The appendix is visualized and appears normal. Pelvis: The urinary bladder, uterus and bilateral adnexal region show no evidence of acute abnormality. No free pelvic fluid is identified. Bones and Soft Tissues: Evaluation of bony structures demonstrates no evidence of acute bony abnormality. IMPRESSION: 1. Possible subtle thickening of the gallbladder wall that could suggest cholecystitis. Please correlate with patient's clinical circumstances. Signer Name: May Jones MD Signed: 12/24/2019 3:30 PM Workstation Name: [id number] ED Disposition Clinical Impression: Acute cholecystitis, Hyperbilirubinemia, Transaminitis Disposition: DC-[id number] OP ADMIT IP TO THIS HOSP Condition: Stable <YOHANA CATALAN - Last Filed: 12/24/19 21:33> ED Course - Reevaluation(s) Reevaluation #2: 12/24/19 20:38 ultrasound suggest cholecystitis general surgery paged, antibiotics ordered after discussion with gen surgery will discuss with gi, if recommended patient will require admission for new onset hyperbilirubinemia, suspected c holecystitis, and transaminitis. Reevaluation #3: 12/24/19 21:34 Dr George of general surgery, and Dr Abraham of GI they will follow in consultation Dr Tracie Negrete to admit patient Discussed significance of laboratory findings and radiology findings with patient, and she is amenable to hospitalization and admission at this time. Her pain is improved at this time, and she appears fairly comfortable ED Medical Decision Making - Lab Data Result diagrams: 12/24/19 12:53 12/24/19 13:15 <CARMEN MARTIN - Last Filed: 12/25/19 17:06> ED Abdominal Pain HPI - General Source: patient, EMS Mode of arrival: Stretcher Limitations: No Limitations - History of Present Illness Initial Comments: Patient is 29 years old female with history of cardiomyopathy after with an ejection fraction of 25 to 35% 7 months ago. Patient presented to the ER complaining of epigastric pain that radiated to her back since last night. Patient stated that she has been having some nausea and vomiting also no diarrhea. Patient denied any chest pain or shortness of breath. Patient also denied any fever or chills. MD Complaint: abdominal pain -: Last night Location: epigastric Radiation: back Migration to: no migration Severity: severe Severity scale (0 -10): 8 Quality: sharp Consistency: constant Associated Symptoms: denies other symptoms ED Review of Systems ROS: Stated complaint: CHEST PAIN Other details as noted in HPI Comment: All other systems reviewed and negative Constitutional: denies: chills, fever Respiratory: denies: cough, shortness of breath, SOB with exertion Cardiovascular: denies: chest pain, palpitations Gastrointestinal: abdominal pain, nausea, vomiting. denies: diarrhea, constipation, hematemesis, melena Musculoskeletal: denies: back pain Neurological: denies: headache, weakness, numbness, paresthesias, confusion ED Past Medical Hx - Past Medical History Previous Medical History?: Yes Additional medical history: cardiomyopathy - Surgical History Past Surgical History?: No - Social History Smoking Status: Never Smoker Substance Use Type: None ED Physical Exam - General Limitations: No Limitations General appearance: alert, in no apparent distress - Head Head exam: Present: atraumatic, normocephalic, normal inspection - Eye Eye exam: Present: normal appearance - ENT ENT exam: Present: normal exam, normal orophraynx, mucous membranes moist - Neck Neck exam: Present: normal inspection, full ROM. Absent: tenderness, meningismus, lymphadenopathy, thyromegaly - Respiratory Respiratory exam: Present: normal lung sounds bilaterally. Absent: respiratory distress, wheezes, rales, rhonchi, accessory muscle use, decreased breath sounds, prolonged expiratory - Cardiovascular Cardiovascular Exam: Present: regular rate, normal rhythm, normal heart sounds - GI/Abdominal GI/Abdominal exam: Present: soft, tenderness (Epigastric tenderness.), normal bowel sounds. Absent: distended, guarding, rebound, rigid, organomegaly, mass, bruit, pulsatile mass, hernia - Extremities Exam Extremities exam: Present: normal inspection, full ROM, normal capillary refill. Absent: pedal edema, calf tenderness - Back Exam Back exam: Present: normal inspection, full ROM. Absent: CVA tenderness (R), CV A tenderness (L) - Neurological Exam Neurological exam: Present: alert, oriented X3, CN II-XII intact - Psychiatric Psychiatric exam: Present: normal mood - Skin Skin exam: Present: warm, intact, normal color ED Course Vital Signs 12/24/19 12/24/19 12/24/19 11:39 11:42 11:45 Temperature 98.4 F Pulse Rate 67 69 Respiratory 19 17 13 Rate Blood Pressure 151/91 Blood Pressure 145/83 [Left] O2 Sat by Pulse 100 100 100 Oximetry 12/24/19 12/24/19 12/24/19 12:00 12:15 12:30 Temperature Pulse Rate 69 62 60 Respiratory 12 12 17 Rate Blood Pressure 145/94 130/76 140/85 Blood Pressure [Left] O2 Sat by Pulse 100 100 Oximetry 12/24/19 12/24/19 12/24/19 12:45 12:46 13:00 Temperature Pulse Rate 69 73 Respiratory 16 18 14 Rate Blood Pressure 136/94 133/93 Blood Pressure [Left] O2 Sat by Pulse 100 100 Oximetry 12/24/19 12/24/19 12/24/19 13:15 13:16 13:30 Temperature Pulse Rate 81 68 Respiratory 14 16 15 Rate Blood Pressure 135/83 146/88 Blood Pressure [Left] O2 Sat by Pulse 98 100 Oximetry 12/24/19 12/24/19 12/24/19 13:45 14:00 14:15 Temperature Pulse Rate 68 76 68 Respiratory 15 19 14 Rate Blood Pressure 136/85 150/91 136/79 Blood Pressure [Left] O2 Sat by Pulse 99 98 98 Oximetry 12/24/19 12/24/19 12/24/19 14:30 14:45 19:25 Temperature 98.3 F Pulse Rate 61 67 64 Respiratory 13 13 18 Rate Blood Pressure 133/71 133/71 Blood Pressure 141/77 [Left] O2 Sat by Pulse 99 98 100 Oximetry 12/24/19 12/24/19 12/24/19 20:01 20:31 21:01 Temperature Pulse Rate Respiratory Rate Blood Pressure 141/74 136/82 142/76 Blood Pressure [Left] O2 Sat by Pulse 100 100 95 Oximetry 12/24/19 12/24/19 12/24/19 21:30 22:00 22:30 Temperature Pulse Rate Respiratory Rate Blood Pressure 123/75 139/86 129/67 Blood Pressure [Left] O2 Sat by Pulse 100 100 97 Oximetry 12/24/19 12/24/19 12/24/19 22:41 22:51 23:00 Temperature Pulse Rate Respiratory Rate Blood Pressure 129/67 129/67 116/65 Blood Pressure [Left] O2 Sat by Pulse 99 99 96 Oximetry 12/24/19 12/24/19 23:11 23:21 Temperature Pulse Rate Respiratory Rate Blood Pressure 116/65 116/65 Blood Pressure [Left] O2 Sat by Pulse 97 98 Oximetry ED Medical Decision Making - Lab Data Result diagrams: 12/25/19 05:11 12/25/19 05:11 - EKG Data -: EKG Interpreted by Me EKG shows normal: sinus rhythm Rate: normal - EKG Data Interpretation: no acute changes Critical care attestation.: If time is entered above; I have spent that time in minutes in the direct care of this critically ill patient, excluding procedure time. ED Disposition Is pt being admited?: Yes
[2019-12-24 13:33] LABS: Basophils % (Auto) 0.5 % (0.0-1.8); Eosinophils # (Auto) 0.1 K/mm3 (0.0-0.4); Eosinophils % (Auto) 1.1 % (0.0-4.3); Hemoglobin 13.5 gm/dl (10.1-14.3); Lymphocytes # (Auto) 1.6 K/mm3 (1.2-5.4); Lymphocytes % (Auto) 21.5 % (13.4-35.0); Mean Corpuscular HGB Conc 35 % (30-34); Mean Corpuscular Volume 91 fl (79-97); Monocytes # (Auto) 0.3 K/mm3 (0.0-0.8); Monocytes % (Auto) 3.6 % (0.0-7.3); Platelet Count 279 K/mm3 (140-440); Red Cell Distribution Width 14.1 % (13.2-15.2)
[2019-12-24 14:07] LABS: Alanine Aminotransferase 154 units/L (7-56); Albumin 4.1 g/dL (3.9-5); BUN/Creatinine Ratio 22; Bilirubin,Direct 1.8 mg/dL (0-0.2); Blood Urea Nitrogen 13 mg/dL (7-17); Hemolysis Index 0
--- NOTE | 2019-12-24 15:34 | Cat Scan Report ---
CT ABDOMEN AND PELVIS WITH IV CONTRAST INDICATION: Generalized abdominal pain for 2 days TECHNIQUE: Following the administration of intravenous contrast, multiple axial CT images of the abdo men and pelvis were acquired. Sagittal and coronal reformats were obtained. All CT performed at this facility utilize dose reduction techniques including automated exposure control, iterative reconstru ction and weight based dosing when appropriate to reduce patient radiation dose to as low as reasonab ly achievable. COMPARISON: None FINDINGS: Limited imaging of the bilateral lung bases trace acute abnormality. Abdomen: There is possible subtle wall thickening of the gallbladder. The liver, spleen, pancreas, bi lateral adrenal glands and bilateral kidneys show no evidence of acute abnormality. There is no evide nce of free fluid, free air or bowel obstruction. The appendix is visualized and appears normal. Pelvis: The urinary bladder, uterus and bilateral adnexal region show no evidence of acute abnormalit y. No free pelvic fluid is identified. Bones and Soft Tissues: Evaluation of bony structures demonstrates no evidence of acute bony abnormal ity. IMPRESSION: 1. Possible subtle thickening of the gallbladder wall that could suggest cholecystitis. Please correl ate with patient's clinical circumstances. Signer Name: May Jones MD Signed: 12/24/2019 3:30 PM Workstation Name: [id number]
--- NOTE | 2019-12-24 19:33 | Ultrasound Report ---
Abdominal ultrasound limited INDICATION: Epigastric pain FINDINGS: The gallbladder wall is abnormally thickened at 5 mm in thickness. Gallstones are noted. Co mmon bile duct measures 3 mm in diameter. No free fluid IMPRESSION: Gallbladder wall thickening with gallstones concerning for cholecystitis. Signer Name: Valdemar Atkins MD Signed: 12/24/2019 7:29 PM Workstation Name: [id number]
[2019-12-24] MEDS ORDERED: PIPERACIL/TAZOBACTA 4.5/NS 100 4.5 GM/100 ML VIAL IV ONE (19:38)
[2019-12-24] MEDS ORDERED: POTASSIUM CHLORIDE ER 20 MEQ TAB PO ONE (19:40)
[2019-12-24 20:04] LABS: Bacteria,Urine 1+ /HPF (Negative); Bilirubin,Urine NEG (Negative); Blood,Urine LG (Negative); Color,Urine Amber (Yellow); Mucus,Urine FEW /HPF; Protein,Urine <15 mg/dL mg/dL (Negative)
[2019-12-24] MEDS ORDERED: ONDANSETRON 4 MG/2 ML INJ IV PRN (22:04)
[2019-12-24] MEDS ORDERED: MORPHINE 2 MG/1 ML INJ IV PRN (22:04)
[2019-12-24] MEDS ORDERED: ACETAMINOPHEN 325 MG TAB PO PRN (22:04)
--- NOTE | 2019-12-24 22:06 | History and Physical Report ---
History of Present Illness History of present illness: 29-year-old woman with history of cardiomyopathy comes emergency room with complaints of abdominal pain. Pain is in the epigastric area which started 2 days ago, describes as sharp pain, intermittent every 30 minutes, intensity 6/10, radiating to the back, cannot identify exacerbating factor, better with morphine. Admits to nausea vomiting for patient will be admitted for acute cholecystitis Review Of Systems: Constitutional: no weight loss, fever, chills Ears, eyes, nose, mouth and throat: no nasal congestion, no nasal discharge, no sinus pressure, blurry vision, diplopia Neck: No neck pain or rigidity. Cardiovascular: No palpitations, chest pain Respiratory: No shortness of breath, cough Gastrointestinal: No hematochezia Genitourinary : no dysuria, frequency Musculoskeletal: no muscle ache , joint pain Integumentary: no rash, no pruritis Neurological: no parathesias, focal weakness Endocrine: no cold or heat intolerance, no polyuria or polydipsia Hematologic/Lymphatic: no easy bruising, no easy bleeding, no gland swelling Allergic/Immunologic: no urticaria, no angioedema. PAST MEDICAL HISTORY: cardiomyopathy PAST SURGICAL HISTORY: None SOCIAL HISTORY: Denies alcohol, tobacco, drugs FAMILY HISTORY: Hypertension Medications and Allergies Allergies Allergy/AdvReac Type Severity Reaction Status Date / Time No Known Allergies Allergy Verified 12/24/19 11:47 Home Medications Medication Instructions Recorded Confirmed Last Taken Type carvediloL [Coreg] 12.5 mg PO BID #60 tablet 06/14/19 12/24/19 Unknown Rx Exam - Physical Exam Narrative exam: Gen. appearance: Patient lying in bed, no apparent distress HEENT: Normocephalic, atraumatic, pupils equally round and reactive to light, extraocular movement intact, and no sclericterus,. No JVD or thyromegaly or nodule,neck supple, no carotid bruit ,mucous membranes moist, no exudate or erythema Heart: S1, S2, regular rate and rhythm Lungs: Clear bilaterally, breathing comfortable Abdomen: Positive bowel sounds, nontender, nondistended, no organomegaly Extremity: no edema, cyanosis, clubbing Skin: No rash, nodules, warm, dry Neuro: speech is fluent, cranial nerves II to XII intact, motor and sensory intact - Constitutional Vitals: Temp Pulse Resp BP Pulse Ox 98.3 F 64 18 136/82 100 12/24/19 19:25 12/24/19 19:25 12/24/19 19:25 12/24/19 20:31 12/24/19 20:31 Results - Labs CBC & Chem 7: 12/24/19 12:53 12/24/19 13:15 Labs: Abnormal lab results 12/24/19 12/24/19 12/24/19 Range/Units 12:53 12:53 13:15 MCHC 35 H (30-34) % Seg Neutrophils % 73.3 H (40.0-70.0) % Potassium 3.2 L (3.6-5.0) mmol/L Creatinine 0.6 L (0.7-1.2) mg/dL Glucose 113 H (65-100) mg/dL Total Bilirubin 2.50 H (0.1-1.2) mg/dL Direct Bilirubin 1.8 H (0-0.2) mg/dL AST 213 H (5-40) units/L ALT 154 H (7-56) units/L NT-Pro-B Natriuret Pep 857.8 H (0-450) pg/mL - Imaging and Cardiology CT scan - abdomen: report reviewed CT scan - pelvis: report reviewed US - abdomen: report reviewed Assessment and Plan Assessment Acute cholecystitis Patient will be placed on bowel rest, IV fluid Surgery and GI was consulted for the patient DVT prophylaxis Cardiomyopathy, stable
[2019-12-24] MEDS ORDERED: hydrALAZINE 20 MG/1 ML INJ IV PRN (22:12)
[2019-12-25 05:28] LABS: Basophils % (Auto) 0.9 % (0.0-1.8); Eosinophils # (Auto) 0.2 K/mm3 (0.0-0.4); Eosinophils % (Auto) 3.9 % (0.0-4.3); Hematocrit 37.6 % (30.3-42.9); Hemoglobin 12.9 gm/dl (10.1-14.3); Lymphocytes % (Auto) 42.9 % (13.4-35.0); Mean Corpuscular HGB Conc 34 % (30-34); Mean Corpuscular Volume 92 fl (79-97); Monocytes # (Auto) 0.3 K/mm3 (0.0-0.8); Platelet Count 256 K/mm3 (140-440); Red Blood Count 4.11 M/mm3 (3.65-5.03); Red Cell Distribution Width 14.1 % (13.2-15.2)
[2019-12-25 05:41] LABS: Alanine Aminotransferase 387 units/L (7-56); Albumin 3.7 g/dL (3.9-5); BUN/Creatinine Ratio 13; Blood Urea Nitrogen 9 mg/dL (7-17); Calcium 8.9 mg/dL (8.4-10.2); Hemolysis Index 3
[2019-12-25 07:40] VITALS: BP 134/75
[2019-12-25 09:49] LABS: Hepatitis B Surface Antigen Non-Reactive (Negative); Hepatitis C Virus Antibody Non-Reactive (NonReactive)
[2019-12-25] MEDS ORDERED: ENOXAPARIN 30 MG/0.3 ML INJ SUB-Q SCH (10:00)
[2019-12-25] MEDS ORDERED: ENOXAPARIN 40 MG/0.4 ML INJ SUB-Q SCH (10:00)
--- NOTE | 2019-12-25 12:01 | Gastroenterology Consultation ---
History of Present Illness - Reason for Consult Consult date: 12/25/19 elevated liver enzymes Requesting physician: YOHANA CATALAN - History of Present Illness This is a 29 yo female with remote h/o cardiomyopathy admitted overnight for abdominal pain and concern for cholecystitis. GI consulted for elevated liver enzymes. Patient reports having 2 days of epigastric pain with nausea/vomiting. No prior similar episodes in the past. This morning, her pain has now resolved. Work up in the ED showed CT a/p showing thickening of gallbladder without mention of CBD dilation. US showing gallstones and gallbladder wall thickening and normal CBD at 3 mm. Viral acute hepatitis panel was negatives. Surgery was consulted. Medication list reviewed. Past History Past Medical History: other (cardiomyopathy) Past Surgical History: No surgical history Social history: no significant social history Family history: hypertension Medications and Allergies Allergies Allergy/AdvReac Type Severity Reaction Status Date / Time No Known Allergies Allergy Verified 12/24/19 11:47 Home Medications Medication Instructions Recorded Confirmed Last Taken Type carvediloL [Coreg] 12.5 mg PO BID #60 tablet 06/14/19 12/24/19 Unknown Rx Active Meds: Active Medications Acetaminophen (Tylenol) 650 mg PO Q4H PRN PRN Reason: Pain MILD(1-3)/Fever >100.5/BUTLER Enoxaparin Sodium (Enoxaparin) 40 mg SUB-Q QDAY@1000 [facility] Last Admin: 12/25/19 11:11 Dose: 40 mg Documented by: Hydralazine HCl (Apresoline) 5 mg IV Q6H PRN PRN Reason: Hypertension Morphine Sulfate (Morphine) 2 mg IV Q4H PRN PRN Reason: Pain, Moderate (4-6) Ondansetron HCl (Zofran) 4 mg IV Q4H PRN PRN Reason: Nausea And Vomiting Sodium Chloride (Sodium Chloride Flush Syringe 10 Ml) 10 ml IV BID [facility] Last Admin: 12/25/19 11:12 Dose: 10 ml Documented by: Sodium Chloride (Sodium Chloride Flush Syringe 10 Ml) 10 ml IV PRN PRN PRN Reason: LINE FLUSH Review of Systems - Review of Systems All systems: negative Constitutional: no weight loss Cardiovascular: chest pain Respiratory: no cough, no shortness of breath Gastrointestinal: abdominal pain, nausea, vomiting, no BRBPR, no melena Neurological: no weakness Hematologic/Lymphatic: no easy bruising, no easy bleeding Exam - Constitutional Vital Signs: Temp Pulse Resp BP Pulse Ox 97.3 F L 60 16 134/75 100 12/25/19 07:00 12/25/19 07:00 12/25/19 07:00 12/25/19 07:00 12/25/19 10:21 General appearance: no acute distress - EENT Eyes: EOM intact ENT: hearing intact - Respiratory Respiratory effort: normal Respiratory: bilateral: CTA - Cardiovascular Rhythm: regular Heart Sounds: Present: S1 & S2 - Gastrointestinal General gastrointestinal: Present: soft, non-tender, non-distended, normal bowel sounds - Neurologic Neurological: alert and oriented x3 - Labs CBC & Chem 7: 12/25/19 05:11 12/25/19 05:11 Lab Results: Laboratory Results - last 24 hr 12/24/19 12/24/19 12/24/19 12:53 12:53 13:15 WBC 7.5 RBC 4.30 Hgb 13.5 Hct 39.0 MCV 91 MCH 32 MCHC 35 H RDW 14.1 Plt Count 279 Lymph % (Auto) 21.5 [place] % (Auto) 3.6 Eos % (Auto) 1.1 Baso % (Auto) 0.5 Lymph # 1.6 [place] # 0.3 Eos # 0.1 Baso # 0.0 Seg Neutrophils % 73.3 H Seg Neutrophils # 5.5 Sodium 141 Potassium 3.2 L Chloride 102.5 Carbon Dioxide 24 Anion Gap 18 BUN 13 Creatinine 0.6 L Estimated GFR > 60 BUN/Creatinine Ratio 22 Glucose 113 H Calcium 9.0 Magnesium Total Bilirubin 2.50 H Direct Bilirubin 1.8 H Indirect Bilirubin 0.7 AST 213 H ALT 154 H Alkaline Phosphatase 89 Total Creatine Kinase Troponin T < 0.010 NT-Pro-B Natriuret Pep 857.8 H Total Protein 7.7 Albumin 4.1 Albumin/Globulin Ratio 1.1 Lipase 22 HCG, Qual Urine Color Urine Turbidity Urine pH Ur Specific [place] Urine Protein Urine Glucose (UA) Urine Ketones Urine Blood Urine Nitrite Urine Bilirubin Urine Urobilinogen Ur Leukocyte Esterase Urine WBC (Auto) Urine RBC (Auto) U Epithel Cells (Auto) Urine Bacteria (Auto) Urine Mucus Hepatitis A IgM Ab Hep Bs Antigen Hep B Core IgM Ab Hepatitis C Antibody 12/24/19 12/24/19 12/24/19 13:15 19:44 19:47 WBC RBC Hgb Hct MCV MCH MCHC RDW Plt Count Lymph % (Auto) [place] % (Auto) Eos % (Auto) Baso % (Auto) Lymph # [place] # Eos # Baso # Seg Neutrophils % Seg Neutrophils # Sodium Potassium Chloride Carbon Dioxide Anion Gap BUN Creatinine Estimated GFR BUN/Creatinine Ratio Glucose Calcium Magnesium 2.10 Total Bilirubin Direct Bilirubin Indirect Bilirubin AST ALT Alkaline Phosphatase Total Creatine Kinase 84 Troponin T NT-Pro-B Natriuret Pep Total Protein Albumin Albumin/Globulin Ratio Lipase HCG, Qual Negative Urine Color [place] Urine Turbidity Clear Urine pH 6.0 Ur Specific [place] 1.010 Urine Protein <15 mg/dl Urine Glucose (UA) Neg Urine Ketones Neg Urine Blood Lg Urine Nitrite Neg Urine Bilirubin Neg Urine Urobilinogen 4.0 Ur Leukocyte Esterase Neg Urine WBC (Auto) 2.0 Urine RBC (Auto) 21.0 U Epithel Cells (Auto) 5.0 Urine Bacteria (Auto) 1+ Urine Mucus Few Hepatitis A IgM Ab Hep Bs Antigen Hep B Core IgM Ab Hepatitis C Antibody 12/25/19 12/25/19 12/25/19 05:11 05:11 08:58 WBC 4.5 RBC 4.11 Hgb 12.9 Hct 37.6 MCV 92 MCH 31 MCHC 34 RDW 14.1 Plt Count 256 Lymph % (Auto) 42.9 H [place] % (Auto) 7.0 Eos % (Auto) 3.9 Baso % (Auto) 0.9 Lymph # 2.0 [place] # 0.3 Eos # 0.2 Baso # 0.0 Seg Neutrophils % 45.3 Seg Neutrophils # 2.1 Sodium 140 Potassium 4.3 D Chloride 104.7 Carbon Dioxide 26 Anion Gap 14 BUN 9 Creatinine 0.7 Estimated GFR > 60 BUN/Creatinine Ratio 13 Glucose 113 H Calcium 8.9 Magnesium Total Bilirubin 1.10 Direct Bilirubin Indirect Bilirubin AST 415 H ALT 387 H Alkaline Phosphatase 125 Total Creatine Kinase Troponin T NT-Pro-B Natriuret Pep Total Protein 6.7 Albumin 3.7 L Albumin/Globulin Ratio 1.2 Lipase HCG, Qual Urine Color Urine Turbidity Urine pH Ur Specific [place] Urine Protein Urine Glucose (UA) Urine Ketones Urine Blood Urine Nitrite Urine Bilirubin Urine Urobilinogen Ur Leukocyte Esterase Urine WBC (Auto) Urine RBC (Auto) U Epithel Cells (Auto) Urine Bacteria (Auto) Urine Mucus Hepatitis A IgM Ab Non-reactive Hep Bs Antigen Non-reactive Hep B Core IgM Ab Non-reactive Hepatitis C Antibody Non-reactive - Imaging CT Scan: report reviewed Ultrasound: report reviewed Assessment and Plan This is a 29 yo female with remote h/o cardiomyopathy admitted overnight for abdominal pain and concern for cholecystitis. GI consulted for elevated liver enzymes. # Elevated liver enzymes # Epigastric pain # Concern for cholecystitis. - acute viral hepatitis panel negative. - Both CT and US imaging showing gallbladder wall thickening. Gallstones seen. Normal size CBD. - currently on zosyn empirically. - if there is concern for choledocholithiasis, recommend either MRCP prior to CCK vs CCK with intraop cholangiogram. - monitor CMP. - surgery consulted. - Patient Problems (1) Transaminitis Current Visit: Yes Status: Acute
--- NOTE | 2019-12-25 13:13 | Progress Note ---
Assessment and Plan Full consult dictated: 29 y/o female admitted secondary to epig pain. "now feeling well" wants to eat. wants to go home. Abd soft, non tender at present. GB US & CT abd - consistent with + stones and borderline dilated GB wall. neg surrounding fluid. imp: r/o biliary colic vs mild cholecystitis. clinically improving continue IV antibiotics will attempt low fat cl liq diet History of present illness: 29-year-old woman with history of cardiomyopathy comes emergency room with complaints of abdominal pain. Pain is in the epigastric area which started 2 days ago, describes as sharp pain, intermittent every 30 minutes, intensity 6/10, radiating to the back, cannot identify exacerbating factor, better with morphine. Admits to nausea vomiting for patient will be admitted for acute cholecystitis Review Of Systems: Constitutional: no weight loss, fever, chills Ears, eyes, nose, mouth and throat: no nasal congestion, no nasal discharge, no sinus pressure, blurry vision, diplopia Neck: No neck pain or rigidity. Cardiovascular: No palpitations, chest pain Respiratory: No shortness of breath, cough Gastrointestinal: No hematochezia Genitourinary : no dysuria, frequency Musculoskeletal: no muscle ache , joint pain Integumentary: no rash, no pruritis Neurological: no parathesias, focal weakness Endocrine: no cold or heat intolerance, no polyuria or polydipsia Hematologic/Lymphatic: no easy bruising, no easy bleeding, no gland swelling Allergic/Immunologic: no urticaria, no angioedema. PAST MEDICAL HISTORY: cardiomyopathy PAST SURGICAL HISTORY: None SOCIAL HISTORY: Denies alcohol, tobacco, drugs FAMILY HISTORY: Hypertension GB US: Selected Entries FINDINGS: The gallbladder wall is abnormally thickened at 5 mm in thickness. Gallstones are noted. Common bile duct measures 3 mm in diameter. No free fluid IMPRESSION: Gallbladder wall thickening with gallstones concerning for cholecystitis. 12/25/19 07:00 Temperature 97.3 F L Pulse Rate 60 Respiratory 16 Rate Blood Pressure 134/75 [Left] Laboratory Tests 12/24/19 12/25/19 12/25/19 13:15 05:11 05:11 WBC 4.5 Hgb 12.9 Hct 37.6 Sodium 140 Potassium 4.3 D BUN 9 Creatinine 0.7 Total Bilirubin 2.50 H AST 213 H 415 H ALT 154 H 387 H Alkaline Phosphatase 89 125 Lipase 22 Objective Vital Signs - 12hr 12/25/19 12/25/19 12/25/19 05:47 07:00 10:21 Temperature 97.8 F 97.3 F L Pulse Rate 58 L 60 Respiratory 18 16 Rate Blood Pressure 121/74 Blood Pressure 134/75 [Left] O2 Sat by Pulse 97 97 100 Oximetry - Labs 12/25/19 05:11 12/25/19 05:11 Diabetes panel 12/24/19 12/25/19 Range/Units 13:15 05:11 Sodium 141 140 (137-145) mmol/L Potassium 3.2 L 4.3 D (3.6-5.0) mmol/L Chloride 102.5 104.7 (98-107) mmol/L Carbon Dioxide 24 26 (22-30) mmol/L BUN 13 9 (7-17) mg/dL Creatinine 0.6 L 0.7 (0.7-1.2) mg/dL Glucose 113 H 113 H (65-100) mg/dL Calcium 9.0 8.9 (8.4-10.2) mg/dL AST 213 H 415 H (5-40) units/L ALT 154 H 387 H (7-56) units/L Alkaline Phosphatase 89 125 (35-129) units/L Total Protein 7.7 6.7 (6.3-8.2) g/dL Albumin 4.1 3.7 L (3.9-5) g/dL Calcium panel 12/24/19 12/25/19 Range/Units 13:15 05:11 Calcium 9.0 8.9 (8.4-10.2) mg/dL Albumin 4.1 3.7 L (3.9-5) g/dL Pituitary panel 12/24/19 12/25/19 Range/Units 13:15 05:11 Sodium 141 140 (137-145) mmol/L Potassium 3.2 L 4.3 D (3.6-5.0) mmol/L Chloride 102.5 104.7 (98-107) mmol/L Carbon Dioxide 24 26 (22-30) mmol/L BUN 13 9 (7-17) mg/dL Creatinine 0.6 L 0.7 (0.7-1.2) mg/dL Glucose 113 H 113 H (65-100) mg/dL Calcium 9.0 8.9 (8.4-10.2) mg/dL Adrenal panel 12/24/19 12/25/19 Range/Units 13:15 05:11 Sodium 141 140 (137-145) mmol/L Potassium 3.2 L 4.3 D (3.6-5.0) mmol/L Chloride 102.5 104.7 (98-107) mmol/L Carbon Dioxide 24 26 (22-30) mmol/L BUN 13 9 (7-17) mg/dL Creatinine 0.6 L 0.7 (0.7-1.2) mg/dL Glucose 113 H 113 H (65-100) mg/dL Calcium 9.0 8.9 (8.4-10.2) mg/dL Total Bilirubin 2.50 H 1.10 (0.1-1.2) mg/dL AST 213 H 415 H (5-40) units/L ALT 154 H 387 H (7-56) units/L Alkaline Phosphatase 89 125 (35-129) units/L Total Protein 7.7 6.7 (6.3-8.2) g/dL Albumin 4.1 3.7 L (3.9-5) g/dL
--- NOTE | 2019-12-25 17:37 | Progress Note ---
Assessment and Plan Assessment and plan: Patient is a 29-year-old female with no significant past medical history presented to the hospital with complaint of abdominal pain was diagnosed with acute cholecystitis. Surgery was consulted and did evaluate the patient recommended continuing antibiotics and to evaluate for possible biliary colic versus mild cholecystitis. Patient unfortunately left AGAINST MEDICAL ADVICE Fortunately patient had left prior to my being notified. Acute cholecystitis Patient will be placed on bowel rest, IV fluid Surgery and GI was consulted for the patient DVT prophylaxis Cardiomyopathy, stable History Interval history: Patient seen and examined this morning resting comfortably reports improvement in abdominal pain. No associated nausea vomiting at this time. Hospitalist Physical - Physical exam Narrative exam: VITAL SIGNS: Reviewed. GENERAL: The patient appears normally developed, Vital signs as documented. HEAD: No signs of head trauma. EYES: Pupils are equal. Extraocular motions intact. EARS: Hearing grossly intact. MOUTH: Oropharynx is normal. NECK: No adenopathy, no JVD. CHEST: Chest with clear breath sounds bilaterally. No wheezes, rales, or rhonchi. CARDIAC: Regular rate and rhythm. S1 and S2, without murmurs, gallops, or rubs. VASCULAR: No Edema. Peripheral pulses normal and equal in all extremities. ABDOMEN: Soft, non tender and non distended. No rebound or guarding, and no masses palpated. Bowel Sounds normal. MUSCULOSKELETAL: Good range of motion of all major joints. Extremities without clubbing, cyanosis or edema. NEUROLOGIC EXAM: Alert and oriented x 3 No focal sensory or strength deficits. Speech normal. Follows commands. PSYCHIATRIC: Mood normal. SKIN: detial exam as documented in skin assessment - Constitutional Vitals: Temp Pulse Resp BP Pulse Ox 97.3 F L 60 16 134/75 100 12/25/19 07:00 12/25/19 07:00 12/25/19 07:00 12/25/19 07:00 12/25/19 10:21 Results - Labs CBC & Chem 7: 12/25/19 05:11 12/25/19 05:11 Labs: Laboratory Last Values WBC 4.5 K/mm3 (4.5-11.0) 12/25/19 05:11 RBC 4.11 M/mm3 (3.65-5.03) 12/25/19 05:11 Hgb 12.9 gm/dl (10.1-14.3) 12/25/19 05:11 Hct 37.6 % (30.3-42.9) 12/25/19 05:11 MCV 92 fl (79-97) 12/25/19 05:11 MCH 31 pg (28-32) 12/25/19 05:11 MCHC 34 % (30-34) 12/25/19 05:11 RDW 14.1 % (13.2-15.2) 12/25/19 05:11 Plt Count 256 K/mm3 (140-440) 12/25/19 05:11 Lymph % (Auto) 42.9 % (13.4-35.0) H 12/25/19 05:11 [place] % (Auto) 7.0 % (0.0-7.3) 12/25/19 05:11 Eos % (Auto) 3.9 % (0.0-4.3) 12/25/19 05:11 Baso % (Auto) 0.9 % (0.0-1.8) 12/25/19 05:11 Lymph # 2.0 K/mm3 (1.2-5.4) 12/25/19 05:11 [place] # 0.3 K/mm3 (0.0-0.8) 12/25/19 05:11 Eos # 0.2 K/mm3 (0.0-0.4) 12/25/19 05:11 Baso # 0.0 K/mm3 (0.0-0.1) 12/25/19 05:11 Seg Neutrophils % 45.3 % (40.0-70.0) 12/25/19 05:11 Seg Neutrophils # 2.1 K/mm3 (1.8-7.7) 12/25/19 05:11 Sodium 140 mmol/L (137-145) 12/25/19 05:11 Potassium 4.3 mmol/L (3.6-5.0) D 12/25/19 05:11 Chloride 104.7 mmol/L (98-107) 12/25/19 05:11 Carbon Dioxide 26 mmol/L (22-30) 12/25/19 05:11 Anion Gap 14 mmol/L 12/25/19 05:11 BUN 9 mg/dL (7-17) 12/25/19 05:11 Creatinine 0.7 mg/dL (0.7-1.2) 12/25/19 05:11 Estimated GFR > 60 ml/min 12/25/19 05:11 BUN/Creatinine Ratio 13 % 12/25/19 05:11 Glucose 113 mg/dL (65-100) H 12/25/19 05:11 Calcium 8.9 mg/dL (8.4-10.2) 12/25/19 05:11 Magnesium 2.10 mg/dL (1.7-2.3) 12/24/19 19:47 Total Bilirubin 1.10 mg/dL (0.1-1.2) 12/25/19 05:11 Direct Bilirubin 1.8 mg/dL (0-0.2) H 12/24/19 13:15 Indirect Bilirubin 0.7 mg/dL 12/24/19 13:15 AST 415 units/L (5-40) H 12/25/19 05:11 ALT 387 units/L (7-56) H 12/25/19 05:11 Alkaline Phosphatase 125 units/L (35-129) 12/25/19 05:11 Total Creatine Kinase 84 units/L (30-135) 12/24/19 19:47 Troponin T < 0.010 ng/mL (0.00-0.029) 12/24/19 12:53 NT-Pro-B Natriuret Pep 857.8 pg/mL (0-450) H 12/24/19 12:53 Total Protein 6.7 g/dL (6.3-8.2) 12/25/19 05:11 Albumin 3.7 g/dL (3.9-5) L 12/25/19 05:11 Albumin/Globulin Ratio 1.2 % 12/25/19 05:11 Lipase 22 units/L (13-60) 12/24/19 13:15 HCG, Qual Negative (Negative) 12/24/19 13:15 Urine Color Liliana (Yellow) 12/24/19 19:44 Urine Turbidity Clear (Clear) 12/24/19 19:44 Urine pH 6.0 (5.0-7.0) 12/24/19 19:44 Ur Specific Martin 1.010 (1.003-1.030) 12/24/19 19:44 Urine Protein <15 mg/dl mg/dL (Negative) 12/24/19 19:44 Urine Glucose (UA) Neg mg/dL (Negative) 12/24/19 19:44 Urine Ketones Neg mg/dL (Negative) 12/24/19 19:44 Urine Blood Lg (Negative) 12/24/19 19:44 Urine Nitrite Neg (Negative) 12/24/19 19:44 Urine Bilirubin Neg (Negative) 12/24/19 19:44 Urine Urobilinogen 4.0 mg/dL (<2.0) 12/24/19 19:44 Ur Leukocyte Esterase Neg (Negative) 12/24/19 19:44 Urine WBC (Auto) 2.0 /HPF (0.0-6.0) 12/24/19 19:44 Urine RBC (Auto) 21.0 /HPF (0.0-6.0) 12/24/19 19:44 U Epithel Cells (Auto) 5.0 /HPF (0-13.0) 12/24/19 19:44 Urine Bacteria (Auto) 1+ /HPF (Negative) 12/24/19 19:44 Urine Mucus Few /HPF 12/24/19 19:44 Hepatitis A IgM Ab Non-reactive (NonReactive) 12/25/19 08:58 Hep Bs Antigen Non-reactive (Negative) 12/25/19 08:58 Hep B Core IgM Ab Non-reactive (NonReactive) 12/25/19 08:58 Hepatitis C Antibody Non-reactive (NonReactive) 12/25/19 08:58
--- NOTE | 2019-12-25 17:38 | Discharge Summary ---
Providers - Providers Date of Admission: 12/24/19 22:04 Attending physician: MEGAN VELASQUEZ MD 12/24/19 19:38 Consult to Physician [CONS] Urgent Comment: Dr. Vann spoke with Dr. 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 Surgery was consulted and did evaluate the patient recommended continuing antibiotics and to evaluate for possible biliary colic versus mild cholecystitis. Patient unfortunately left AGAINST MEDICAL ADVICE Fortunately patient had left prior to my being notified. Acute cholecystitis Abdominal pain secondary to above Disposition: DC-07 LEFT AGAINST MED ADVICE Core Measure Documentation - Palliative Care Palliative Care/ Comfort Measures: Not Applicable - Core Measures Any of the following diagnoses?: none Exam - Physical Exam Narrative exam: VITAL SIGNS: Reviewed. GENERAL: The patient appears normally developed, Vital signs as documented. HEAD: No signs of head trauma. EYES: Pupils are equal. Extraocular motions intact. EARS: Hearing grossly intact. MOUTH: Oropharynx is normal. NECK: No adenopathy, no JVD. CHEST: Chest with clear breath sounds bilaterally. No wheezes, rales, or rhonchi. CARDIAC: Regular rate and rhythm. S1 and S2, without murmurs, gallops, or rub s. VASCULAR: No Edema. Peripheral pulses normal and equal in all extremities. ABDOMEN: Soft, non tender and non distended. No rebound or guarding, and no masses palpated. Bowel Sounds normal. MUSCULOSKELETAL: Good range of motion of all major joints. Extremities without clubbing, cyanosis or edema. NEUROLOGIC EXAM: Alert and oriented x 3 No focal sensory or strength deficits. Speech normal. Follows commands. PSYCHIATRIC: Mood normal. SKIN: detial exam as documented in skin assessment - Constitutional Vitals: Temp Pulse Resp BP Pulse Ox 97.3 F L 60 16 134/75 100 12/25/19 07:00 12/25/19 07:00 12/25/19 07:00 12/25/19 07:00 12/25/19 10:21 Plan Follow up with: PRIMARY CARE, [Primary Care Provider] - 3-5 Days
--- NOTE | 2019-12-25 21:45 | Consultation ---
REASON FOR CONSULTATION: Epigastric abdominal pain, rule out cholecystitis. HISTORY OF PRESENT ILLNESS: The patient is a 29-year-old female who was admitted at this time with a chief complaint of epigastric abdominal pain, but states that " home. PAST MEDICAL HISTORY: The patient states is negative, but on review of the chart cardiomyopathy is mentioned. The patient denies any real chest pain, shortness of breath, etc. PAST SURGICAL HISTORY: Negative. ALLERGIES: No known allergies. MEDICATIONS: No medications. FAMILY HISTORY: Negative. SOCIAL HISTORY: Denies any smoking or drinking. PHYSICAL EXAMINATION: GENERAL: At this time reveals the patient to be awake, alert, cooperative. She quickly got up and sat bedside upon my entrance into the room, appears to be in no discomfort or distress. VITAL SIGNS: Show her to be afebrile with a temperature of 97.3, blood pressure is 134/75, pulse of 60, respirations of 16. HEENT: Pupils are equal and reactive to light and accommodation. Sclerae are nonicteric. ABDOMEN: Examination of the abdomen revealed to be flat, soft, and nontender at present. Bowel sounds are present and normal. LABORATORY DATA: Lab work at this time includes a CBC which shows a white count of 4.5, H and H is 12.9 and 37.6. Electrolytes are essentially within normal limits. Total bilirubin on admission was noted to be elevated at 2.5, currently it is 1.1. LFTs are also elevated including an AST of 213 on admission, which has now risen to 415; ALT was 154 on admission, currently 387. Alkaline phosphatase is 125. Lipase is normal at 22. A CT scan of the abdomen was performed which shows a possible subtle thickening of the gallbladder wall which could suggest cholecystitis and clinical correlation is recommended. Subsequent gallbladder ultrasound was also performed which revealed some gallbladder wall thickening with gallstones, concerning for cholecystitis. IMPRESSION: At this time is that of a 29-year-old female admitted with epigastric abdominal pain, rule out biliary colic versus mild cholecystitis. The patient clinically is improving. RECOMMENDATIONS: Would recommend at this time to continue IV antibiotics. We will attempt a low fat clear liquid diet and see how the patient tolerates. We will also repeat LFTs in the morning. If LFTs continue to rise, then we would recommend a possible MRCP and GI evaluation for possible other sources of hepatic disease. Again, the patient clinically and surgically stable at this time. I will follow closely with you. Thank you very much for consultation. JOB# [id number] MIRIAM/YONG
== END 2019-12-25 13:45 | disposition left against medical advice (07) | DRG 445 ==
LOC: ED 11:35 → 3B-SURG 22:04
PROVIDERS: ADMIT Internal Medicine; ATTEND Internal Medicine
DX: K80.00 Calculus of gallbladder with acute cholecystitis without obstruction (principal); I42.9 Cardiomyopathy, unspecified; E80.6 Other disorders of bilirubin metabolism; R74.0 Nonspecific elevation of levels of transaminase and lactic acid dehydrogenase [LDH]; R10.84 Generalized abdominal pain; Z82.49 Family history of ischemic heart disease and other diseases of the circulatory system
CPT/HCPCS: 36415; 74177; 76705; 80048; 80053; 80074; 80076; 81001; 82550; 83690; 83735; 83880; 84484; 84703; 85025; 93005; 93010; G0378; C9113; J1650; J2270; J2405; J2543; J7040; Q9967